=== PATIENT | female | born 1990 | race Caucasian/White ===

== ENCOUNTER 2020-11-19 19:22 | Inpatient (IN) ==
[2020-11-19] MEDS ORDERED: OXYTOCIN 30 UNITS/500 ML BAG IV PRN (20:04)
[2020-11-19] MEDS: LACTATED RINGER'S 1,000 ML IV PRN ×2 (20:15→21:23)
[2020-11-19] MEDS ORDERED: ePHEDrine sulfate 50 MG/ML AMP ONE (20:23)
[2020-11-19] MEDS ORDERED: SODIUM CHLORIDE 0.9% INJ 10 ML VIAL ONE (20:23)
[2020-11-19] MEDS ORDERED: fentaNYL citrate 100 MCG/2 ML VIAL ONE (20:23)
[2020-11-19] MEDS ORDERED: BUPIVACAINE 0.25% 30 ML VIAL ONE (20:23)
[2020-11-19] MEDS ORDERED: fentaNYL 2MCG/ML ROPIVACAINE 1.25MG/ML 100 ML BAG EPI ONE (20:24)
--- NOTE | 2020-11-19 20:27 | History & Physical Report ---
Date of Service November 19, 2020 Assessment & Plan (1) Normal labor: IUP at 40+ weeks presents with SPROM , thin meconium and active labor history of shunt placement X 2 for hydrocephalus cleared by neurology for vaginal delivery morbid obesity with BMI of 57. requesting epidural analgesia anticipate vaginal . History of Present Illness Primary Care Provider: NO PCP Patient is a 30 yo female who presents at 40+ weeks with SPROM at 1800 tonight. contractions started shortly afterward. GBS negative. complicated by morbid obesity (BMI-57) and a history of surgery for correction of hydrocephalus X 2 as well as sleep apnea. Her neurologic status is stable since 2017 and may proceed with a vaginal . Blood type is O negative. 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, 2007 Family History Mother Insomnia Father Obstructive sleep apnea Social History Smoking Status: Never smoker Hx Alcohol Use: No Hx Substance Use: No Preferred Language: Belarusian Communication Ability: Effective 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 Beliefs That Will Affect Care: None marital status: marital status details: Av White (36) [phone] Current Living Situation: Spouse Current Living Situation Comment: house with current occupational status: employed 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 Other Information That Helps Us Care for You: No Feels Safe at Home: Yes Safety Concerns: Feels Safe At This Time Assistive Devices: None Review of Systems All systems reviewed & are unremarkable except as noted in HPI & below Physical Exam Constitutional: WD/WN, vitals as above Respiratory: normal respiratory effort, lungs clear to auscultation Cardiovascular: RRR, no murmur, no edema Gastrointestinal (Abdomen): normal bowel sounds, soft, nontender, no hepatosplenomegaly Percussion/Palpation: abdomen soft Psychiatric: A+Ox3, euthymic affect Genitourinary: Manual OB Exam: + cervical dilation 4 cm, + cervical effacement 100%, + station -1 and + amniotic fluid meconium (thin) OB Exam Monitor Tracing: + external FHT monitor used, + category I and + normal FHT variability Results & Data ([facility]) Vital Signs (Past 12 Hours) Vital Signs Temp Pulse Resp BP 11/19/20 19:48 98.6 F 20 11/19/20 19:43 92 H 158/72 H Coding Level of Care Code None Diagnoses Normal labor O80; Z37.9
[2020-11-19 20:34] LABS: Hematocrit (blood only) 36.1 % (37-47); Hemoglobin 12.2 g/dL (12.0-16.0); Mean Corpuscular Hemoglobin 26.9 pg (25-34); Mean Corpuscular Hgb Conc 33.8 g/dL (32-36); Mean Corpuscular Volume 79.5 fL (80-100); Platelet Count 303 K/uL (130-400); RDW Coefficient of Variation 16.7 % (11.5-14.5); RDW Standard Deviation 48.1 fL (36.4-46.3); Red Blood Count 4.54 M/uL (4.2-5.4); White Blood Count 12.02 K/uL (4.8-10.8)
--- NOTE | 2020-11-19 20:50 | Anesthesiology Consultation ---
Date of Service November 19, 2020 Assessment & Plan (1) Encounter for pre-operative examination: Chart Review Chart Review: Acceptable Risk for Labor Epidural Consults Requested none ASA ASA3 Proposed Anesthesia Anesthesia Type: Labor Epidural Risk / Benefits Reviewed With: PT / POA / Parent / Guardian, Accepts Plan and Informed Consent Obtained History Height/Weight Height: 5 ft 7 in Weight: 165.108 kg Allergies Allergy/AdvReac Type Severity Reaction Status Date / Time No Known Allergies Allergy Verified 11/19/20 19:46 Medications Home Medications Medication Instructions Recorded Confirmed Last Taken prenat.vits,marlo,rba-yhir-[id number] 1 tab PO DAILY 03/29/20 11/19/20 11/19/20 ferrous sulfate 1 tab PO DAILY 08/23/20 11/15/20 11/19/20 Active Medications Generic Name Dose Route Start Last Admin Trade Name Freq PRN Reason Stop Dose Admin Lactated Ringer's 1,000 mls @ 125 mls/hr 11/19/20 20:04 11/19/20 20:15 Lr IV 11/21/20 20:03 999 mls/hr .Q8H PRN Administration L&D Protocol Protocol Past Medical History Medical History History of chicken pox Exercise / Class Metabolic Activity II 4-5 Yardwork/Stairs/Walk up hill Past Family History Family History Mother Insomnia Father Obstructive sleep apnea Past Surgical History Surgical History History of appendectomy 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, 2007 Past Anesthesia History No Hx of Anesthesia Complications and No Family Hx of Anesthesia Complications History of PONV No Hx of PONV and No Hx of Motion Sickness Social History Smoking Status: Never smoker Hx Alcohol Use: No Hx Substance Use: No Physical Exam Vital Signs Last Vital Signs Temp 98.6 F 11/19/20 19:48 Pulse 100 H 11/19/20 20:45 Resp 20 11/19/20 19:48 BP 132/85 11/19/20 20:45 Pulse Ox 100 11/19/20 20:45 ENMT Mouth: no dentition abnormality Thyromental Distance: > or= 3.5 Finger Breadths Mallampati Class: III Neck normal visual inspection Respiratory normal respiratory effort Auscultation: lungs clear to auscultation bilaterally Cardiovascular Rate/Rhythm: regular rate and regular rhythm Testing Laboratory Results 11/19/20 20:22
[2020-11-19] MEDS ORDERED: ONDANSETRON INJ 2 MG/ML 2 ML VIAL IV PRN (21:16)
[2020-11-19] MEDS ORDERED: fentaNYL 2MCG/ML ROPIVACAINE 1.25MG/ML 100 ML BAG EPI PRN (21:16)
[2020-11-19] MEDS ORDERED: NALOXONE HCL 1 MG in SODIUM CHLORIDE 0.9% 1000ML 1,000 ML IV PRN (21:16)
[2020-11-19] MEDS ORDERED: ePHEDrine sulfate 50 MG/ML AMP IV PRN (21:16)
[2020-11-19] MEDS ORDERED: NALOXONE HCL 0.4 MG/1 ML VIAL/CARP IV PRN (21:16)
[2020-11-19] MEDS ORDERED: diphenhydrAMINE 50 MG/ML VIAL IV PRN (21:16)
[2020-11-19] MEDS ORDERED: NURSING L&D Epidural Breakthrough Pain Update ONE (23:14)
[2020-11-20] MEDS ORDERED: DIPHTHERIA/TETANUS/PERTUSSIS 0.5 ML SYR/VIAL IM ONE (00:50)
[2020-11-20] MEDS ORDERED: oxyCODONE/ACETAMINOPHEN 5mg/325mg TAB PO PRN (00:50)
[2020-11-20] MEDS ORDERED: HYDROCORTISONE ACETATE 25 MG SUPP PR PRN (00:50)
[2020-11-20] MEDS ORDERED: bisacodyL 10 MG SUPP PR PRN (00:50)
[2020-11-20] MEDS ORDERED: SUPERCREAM 0.870% 15 GM JAR EXT PRN (00:50)
[2020-11-20] MEDS ORDERED: ACETAMINOPHEN 325 MG TAB PO PRN (00:50)
[2020-11-20] MEDS ORDERED: OXYTOCIN 30 UNITS/500 ML BAG IV PRN (00:50)
--- NOTE | 2020-11-20 01:11 | Delivery Summary ---
Vaginal Delivery Summary Date of Service November 20, 2020 Patient is a 30-year-old 1 P0 white female who presents at 39-4/7 weeks after rupture of membranes at approximately 1800 hrs. this evening. Spontaneous contractions started shortly after this and she arrived at labor and delivery at 5 cm dilated requesting epidural analgesia. The epidural was effective and she progressed to full dilation and pushed effectively through 3 contractions for delivery of a viable female infant over intact perineum. The placenta was expressed intact with a three-vessel cord after obtaining cord blood sample. A second-degree perineal and vaginal laceration were repaired with 3-0 chromic in the usual fashion. bleeding was controlled with dilute Pitocin. Estimated blood loss was 350 cc. Mother and infant were doing well after delivery. Vaginal Delivery Summary and 2nd [place] [facility] [place] Charge Vaginal Delivery Codes: 84091 global code for the antepartum, delivery, and post- Delivery Type Details: and 2nd Degree [facility]
[2020-11-20] MEDS: BENZOCAINE 20% AER SPR 82.5 GM CAN EXT PRN ×2 (02:22→07:46)
[2020-11-20] MEDS: IBUPROFEN 600 MG TAB PO PRN ×4 (06:33→19:35)
--- NOTE | 2020-11-20 06:57 | Obstetrical Progress Note ---
Date of Service November 20, 2020 Assessment & Plan (1) Encounter for care and examination after delivery: satisfactory exam continue current care plan Subjective Ambulation: ambulating normally Voiding: no voiding problems Passing Gas:: Yes Diet Tolerance:: regular diet Lochia:: Moderate Feeding Type:: breast feeding Physical Exam Constitutional WD/WN, vitals as above Psychiatric A+Ox3, euthymic affect Genitourinary OB Exam Abdomen: + fundal height Fundus: + firm and + relation to umbilicus (at U) Results & Data ([facility]) Vital Signs (Past 12 Hours) Vital Signs Temp Pulse Resp BP Pulse Ox 11/20/20 02:46 94 H 134/67 11/20/20 02:45 98.1 F 18 11/20/20 02:31 90 128/62 11/20/20 02:16 91 H 130/59 L 11/20/20 02:01 89 148/67 H 11/20/20 01:46 92 H 137/61 11/20/20 01:31 100 H 147/65 H 11/20/20 01:16 109 H 132/61 11/20/20 01:01 99 H 148/66 H 11/20/20 00:55 101 H 99 11/20/20 00:50 106 H 100 11/20/20 00:46 104 H 146/88 H 11/20/20 00:45 102 H 100 11/20/20 00:42 96 H 137/68 11/20/20 00:40 98 H 100 11/20/20 00:35 91 H 100 11/20/20 00:30 103 H 100 11/20/20 00:27 104 H 135/62 11/20/20 00:25 107 H 100 11/20/20 00:23 20 11/20/20 00:20 109 H 100 11/20/20 00:15 138 H 100 11/20/20 00:13 122 H 150/68 H 11/20/20 00:10 125 H 100 11/20/20 00:05 114 H 98 11/20/20 00:02 102 H 93 11/20/20 00:00 106 H 18 98 11/19/20 23:58 93 H 124/58 L 11/19/20 23:57 112 H 182/67 H 11/19/20 23:55 103 H 100 11/19/20 23:50 85 100 11/19/20 23:45 91 H 100 11/19/20 23:42 85 199/79 H 11/19/20 23:40 89 100 11/19/20 23:35 93 H 98 11/19/20 23:30 98.1 F 90 18 100 11/19/20 23:26 83 136/66 11/19/20 23:25 93 H 99 11/19/20 23:20 99 H 100 11/19/20 23:15 91 H 99 11/19/20 23:12 91 H 142/74 H 11/19/20 23:10 85 100 11/19/20 23:05 95 H 100 11/19/20 23:00 93 H 18 100 11/19/20 22:57 86 123/56 L 11/19/20 22:55 91 H 100 11/19/20 22:50 93 H 99 11/19/20 22:45 91 H 100 11/19/20 22:42 96 H 131/71 11/19/20 22:40 95 H 100 11/19/20 22:35 89 100 11/19/20 22:30 84 18 98 11/19/20 22:27 86 115/54 L 11/19/20 22:25 84 99 11/19/20 22:20 87 100 11/19/20 22:15 92 H 100 11/19/20 22:12 81 106/57 L 11/19/20 22:10 89 100 11/19/20 22:05 80 100 11/19/20 22:00 80 18 100 11/19/20 21:56 83 129/71 11/19/20 21:55 75 100 11/19/20 21:50 77 100 11/19/20 21:45 85 100 11/19/20 21:42 86 135/76 11/19/20 21:40 80 100 11/19/20 21:35 80 100 11/19/20 21:30 80 100 11/19/20 21:26 77 123/60 11/19/20 21:25 98.1 F 85 18 99 11/19/20 21:24 75 127/59 L 11/19/20 21:22 78 120/56 L 11/19/20 21:20 82 132/62 100 11/19/20 21:18 82 127/59 L 11/19/20 21:16 78 131/60 11/19/20 21:15 75 100 11/19/20 21:14 82 146/83 H 11/19/20 21:12 86 123/65 11/19/20 21:10 86 141/67 H 100 11/19/20 21:08 86 139/66 11/19/20 21:05 92 H 99 11/19/20 21:00 90 100 11/19/20 20:55 101 H 100 11/19/20 20:50 95 H 100 11/19/20 20:49 100 H 131/75 11/19/20 20:45 100 H 132/85 100 11/19/20 19:48 98.6 F 20 11/19/20 19:43 98.6 F 92 H 20 158/72 H
--- NOTE | 2020-11-20 07:24 | Anesthesia Procedure Note ---
Date of Service November 20, 2020 Anesthesia Post Epidural Note Vital Signs Vital Signs: Temp Pulse Resp BP Pulse Ox 36.7 C 94 H 18 134/67 99 11/20/20 02:45 11/20/20 02:46 11/20/20 02:45 11/20/20 02:46 11/20/20 00:55 Pain Intensity Left Abdomen: Pain Intensity: 6 Notes Mental Status: alert / awake / arousable and participated in evaluation Patient Amnestic to Procedure: Yes Nausea / Vomiting: adequately controlled Pain: adequately controlled Airway Patency, RR, SpO2: stable & adequate BP & HR: stable & adequate Hydration State: stable & adequate Anesthetic Complications: no major complications apparent and Pt Satisfied with anesthetic care
[2020-11-20] MEDS: PRENATAL VITAMIN 1 TAB PO SCH (07:41)
[2020-11-20] MEDS: DOCUSATE SODIUM 100 MG CAP PO SCH ×2 (07:41→21:06)
[2020-11-21] MEDS: IBUPROFEN 600 MG TAB PO PRN ×3 (00:20→08:28)
--- NOTE | 2020-11-21 05:57 | Obstetrical Progress Note ---
Date of Service <Fer Clark MD - Last Filed: 11/21/20 07:27> November 21, 2020 Assessment & Plan <Fer Clark MD - Last Filed: 11/21/20 07:27> (1) state: 30 y/o s/p 0023 11/20/20. 40w5d. 2nd degree perineal and vaginal lac. morbid obesity. O neg. rubella immune - vitals reviewed - meeting PP milestones - pain controlled - w/o issues - s/p rhogam - dispo home today. instructions reviewed by attending Subjective <Fer Clark MD - Last Filed: 11/21/20 07:27> Ambulation: ambulating normally Voiding: no voiding problems Passing Gas:: Yes Diet Tolerance:: regular diet Lochia:: Moderate (improving) Feeding Type:: breast feeding (no issues) Current Pain Level(1-10): 4 (about same as yesterday) ok w/ dispo today Review of Systems Denies fever, chills, sweats Denies shortness of breath, chest pain, palpitations. Denies breast pain. Denies dysuria. Denies headache or changes in vision. Denies nausea/vomiting. Denies numbness, tingling, weakness. no calf pain mood ok Physical Exam <Fer Clark MD - Last Filed: 11/21/20 07:27> General: Alert, oriented. No acute distress. Cardiac: Regular rate and rhythm, no murmurs/rubs/gallops. Respiratory: Clear to auscultation bilaterally, no wheezes/rales/rhonchi. No respiratory distress. Abdomen: , soft, nontender. Uterus: Uterine fundus firm, and palpable at umbilicus or lower per attending exam. Lower Extremities: 1+ ble. No deep calf pain. Yenni's negative bilaterally. Results & Data ([facility]) <Fer Clark MD - Last Filed: 11/21/20 07:27> Vital Signs (Past 12 Hours) Vital Signs Temp Pulse Resp BP Pulse Ox 11/21/20 00:15 36.8 C 84 18 126/76 99 11/20/20 19:55 37.1 C 86 18 139/83 99 Medications Administered <Petty De Anda MD - Last Filed: 11/21/20 07:27> Co-Signing Physician Notes Resident Physician Supervision Note: I interviewed and examined the patient. Discussed with Dr. Clark and agree with findings and plan as documented in the note. Any exceptions or clarifications are listed here: None Documented By: Petty De Anda MD, FACOG
[2020-11-21 06:21] LABS: Hematocrit (blood only) 30.6 % (37-47); Mean Corpuscular Hemoglobin 26.3 pg (25-34); Mean Corpuscular Hgb Conc 32.7 g/dL (32-36); Mean Corpuscular Volume 80.5 fL (80-100); Mean Platelet Volume 8.5 fL (7.4-10.4); Platelet Count 248 K/uL (130-400); RDW Coefficient of Variation 17.2 % (11.5-14.5); RDW Standard Deviation 50.1 fL (36.4-46.3); White Blood Count 9.32 K/uL (4.8-10.8)
[2020-11-21] MEDS: PRENATAL VITAMIN 1 TAB PO SCH (08:28)
[2020-11-21] MEDS: DOCUSATE SODIUM 100 MG CAP PO SCH (08:28)
[2020-11-21] MEDS ORDERED: bisacodyL 5 MG TABEC PO SCH (20:00)
== END 2020-11-21 11:55 | disposition home or self-care (01) | DRG 807 ==
LOC: 4S1 19:22 → OPB 19:22 → 4S1 20:04 → 4S2 11-20 03:00

== ENCOUNTER 2022-07-03 07:43 | Inpatient (IN) ==
[2022-07-03] MEDS ORDERED: LIDOCAINE 1% LOCAL 20 ML VIAL INFIL PRN (07:48)
[2022-07-03] MEDS ORDERED: OXYTOCIN 30 UNITS/500 ML BAG IV PRN ×3 (07:48→21:39)
[2022-07-03] MEDS ORDERED: PENICILLIN G POTASSIUM 6 MU in DEXTROSE 5% 250 ML IV STA (07:48)
[2022-07-03] MEDS: Patient's HEIGHT &/or WEIGHT Needed SCH ×2 (08:35→22:32)
--- NOTE | 2022-07-03 08:49 | History & Physical Report ---
Date of Service July 03, 2022 Assessment & Plan (1) Encounter for induction of labor: (2) GBS (group B Streptococcus carrier), +RV culture, currently : (3) Obesity affecting , antepartum: (4) Polyhydramnios: (5) Need for rhogam due to Rh negative mother: Plan - Patient admitted to labor and delivery for initiation of medical induction of labor - Patient did not receive Malcolm, will plan induce with Pitocin - Oxytocin augmentation of labor will be started per protocol - Patient is GBS+, will require PCN per protocol, no PCN allergy - Patient is Rh -, will plan for Rhogam as indicated - Once contractions are progressing, will consider ROM - Will anticipate epidural as contractions arise - Hgb 10.7/Hct 33, COVID -, type and screening pending Admission and Anticipated Discharge Date Admission Date: July 03, 2022 History of Present Illness Chief Complaint: Induction of Labor Primary Care Provider: WILLIAM Birch Subjective: Myra is a 31 F currently at 39w4d with SHANTEL 07/06/22 determined by LMP who is presenting to L&D for induction. No Malcolm placed. Last cx check in office was 280/-2 on 07/02. Patient notes occasional upper abdominal cramping (bilaterally) but denies any contractions or low back pain. She notes that @ 0400 she noticed a bloody show and loss of mucous plug. She denies any heavy bleeding or clot passage. Patient has a hx of pineal cyst/hydrocephalus s/p craniotomy, she was evaluated by neurology and cleared for vaginal delivery. Complications: Obesity (BMI 51+), CF carrier, Rh Negative Mother, Polyhydramnios Reason for Induction/: Polyhydramnios Movement: Ongoing Fluid Loss/ROM: None Bloody show/discharge: Endorses bloody show @ 0400, endorses loss of mucous plug External FHT and uterine monitor: Category 1, baseline 145-150, moderate variability, multiple accelerations Last OB appointment: 07/02 (2/80/-2 w/ Nighat), regular care Labs: Blood Type: O- Antibody Screen: Negative Hg/Hct (today): WBC/Plt (today): Rubella: Immune RPR: Non-reactive Gonorrhea: Negative Chlamydia: Negative HIV: Negative HbSAg: Negative GBS: Positive Cff-DNA/SMA: Declined CRIMINAL ANALYST Hx: Prior @ 40 wk EGA (8 lb 13 oz Female) by Dr. Maldonado, Pap 03/04/20 wnl w/ Adilson, No STD Hx Allergies Allergy/AdvReac Type Severity Reaction Status Date / Time No Known Allergies Allergy Verified 07/03/22 08:37 Home Medications Medication Instructions Recorded Confirmed Type prenat.vits,marlo,bbn-[id number]-vlzvn 1 tab PO DAILY 03/29/20 07/03/22 History Patient History Medical History (Updated 07/03/22 @ 09:46 by Shaq Caba DO) Cystic fibrosis carrier History of chicken pox History of pineal cyst Migraines following Neuro- has appointment made Mild obstructive sleep apnea Nocturnal hypoxemia Obesity Surgical History History of appendectomy 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, 2007 S/P wisdom tooth extraction Family History Mother Insomnia Father Obstructive sleep apnea Grandmother (Maternal) Diabetes Denies family history of Ovarian cancer Prostate cancer Breast cancer Lung cancer Hypertension Social History Smoking Status: Never smoker Second Hand Exposure: No; Hx Alcohol Use: No Hx Substance Use: No Preferred Language: Luxembourgish Communication Ability: Effective Visual Impairment: No Limitations Hearing Ability: Normal 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 Beliefs That Will Affect Care: None marital status: marital status details: Harinder White (38) [phone] Current Living Situation: Spouse and Family Current Living Situation Comment: FOB and 1 child - 2 dogs current occupational status: unemployed 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 No visual changes. Physical Exam Physical Exam: General: Alert, oriented. No acute distress. Cardiac: Regular rate and rhythm, no murmurs/rubs/gallops. Respiratory: CTAB, no wheezes/rales/rhonchi. Symmetrical chest rise. No respiratory distress. Abdomen: Abdominal adiposity noted. Gravid abdomen, no TTP; FHTs present; Position: Vertex (per Dr. Disla) Pelvic: TRINY pending Dr. Disla Lower Extremities: 2+ lower extremity edema, varicosities noted. No deep calf pain. Yenni's negative bilaterally. Results & Data ([facility]) Vital Signs (Past 12 Hours) Vital Signs Temp Pulse Resp BP 07/03/22 08:09 36.9 C 99 H 18 128/75 07/03/22 07:59 99 H 128/75 Supervising Physician Co-Signing Physician Notes Resident Physician Supervision Note: I was present with Dr. Caba during the history and exam. I discussed the case with the resident and agree with the findings and plan as documented in the note. Any exceptions or clarifications are listed here: None Documented By: Mohini Dilsa, Resident Activity Tracking Resident Involvement: Resident Care Provided Care Provided: OB Delivery
[2022-07-03 09:01] LABS: Hemoglobin 10.7 g/dl (12.0-16.0); Mean Corpuscular Hemoglobin 25.8 pg (25.0-34.0); Mean Corpuscular Hgb Conc 32.4 g/dL (32.0-36.0); Mean Corpuscular Volume 79.5 fL (80.0-100.0); Mean Platelet Volume 8.9 fL (9.4-12.3); Platelet Count 228 K/uL (130-400); RDW Coefficient of Variation 16.8 % (11.5-14.5); RDW Standard Deviation 47.6 fL (36.4-46.3); Red Blood Count 4.15 M/uL (3.93-5.22); White Blood Count 9.83 K/ul (4.8-10.8)
[2022-07-03] MEDS: LACTATED RINGER'S 1,000 ML IV PRN ×2 (09:19→12:18)
[2022-07-03] MEDS ORDERED: SODIUM CHLORIDE 0.9% 250 ML IV PRN (09:25)
[2022-07-03] MEDS ORDERED: fentaNYL citrate 100 MCG/2 ML VIAL ONE (11:35)
[2022-07-03] MEDS ORDERED: ePHEDrine sulfate 50 MG/ML AMP ONE (11:35)
[2022-07-03] MEDS ORDERED: LIDOCAINE 2%/EPINEPHRINE 1:200,000 20 ML SDV ONE (11:36)
[2022-07-03] MEDS ORDERED: BUPIVACAINE 0.25% 30 ML VIAL ONE (11:36)
[2022-07-03] MEDS ORDERED: fentaNYL 2MCG/ML ROPIVACAINE 1.25MG/ML 100 ML BAG EPI ONE (11:36)
[2022-07-03] MEDS ORDERED: SODIUM CHLORIDE 0.9% INJ 10 ML VIAL ONE (11:36)
[2022-07-03] MEDS ORDERED: Nursing to Pharmacy Communication SCH (12:00)
--- NOTE | 2022-07-03 12:00 | Labor Progress Brief Note ---
Date of Service July 03, 2022 Subjective Does not desire epidural yet. FHT difficult to trace d/t maternal body habitus. PCN 1st dose has been administered for GBS prophylaxis. SVE 2-3/70/-2. AROM blood-tinged fluid. IUPC, FSE applied. FHT Cat 1, [place] Q 2-3 min Limited bedside ultrasound - cephalic presentation Continue labor, pitocin @ 2, continue to increase per protocol. Anticipate . Assessment & Plan Admission and Anticipated Discharge Date Admission Date: July 03, 2022 Results & Data ([facility]) Vital Signs (Past 12 Hours) Vital Signs Temp Pulse Resp BP Pulse Ox 07/03/22 08:09 36.9 C 99 H 18 128/75 07/03/22 11:52 78 99 07/03/22 11:18 73 141/89 H 07/03/22 10:17 77 129/62 07/03/22 09:22 82 139/65 07/03/22 07:59 99 H 128/75 Coding Level of Care Code None
[2022-07-03] MEDS ORDERED: ONDANSETRON INJ 2 MG/ML 2 ML VIAL IV PRN (12:16)
[2022-07-03] MEDS ORDERED: fentaNYL 2MCG/ML ROPIVACAINE 1.25MG/ML 100 ML BAG EPI PRN (12:16)
[2022-07-03] MEDS ORDERED: NALOXONE HCL 0.4 MG/1 ML VIAL/CARP IV PRN (12:16)
[2022-07-03] MEDS ORDERED: NALOXONE HCL 1 MG in SODIUM CHLORIDE 0.9% 1000ML 1,000 ML IV PRN (12:16)
[2022-07-03] MEDS ORDERED: NALBUPHINE HCL INJ 10 MG/ML AMP IV PRN (12:16)
[2022-07-03] MEDS ORDERED: diphenhydrAMINE 50 MG/ML VIAL IV PRN (12:16)
[2022-07-03] MEDS ORDERED: ePHEDrine sulfate 50 MG/ML AMP IV PRN (12:16)
--- NOTE | 2022-07-03 12:18 | Anesthesiology Consultation ---
Date of Service July 03, 2022 Assessment & Plan Chart Review Chart Review: Patient NOT seen in Pre Admission Testing and Acceptable Risk for Labor Epidural Consults Requested none ASA ASA3 Proposed Anesthesia Anesthesia Type: Labor Epidural and CSE Risk / Benefits Reviewed With: PT / POA / Parent / Guardian, Accepts Plan and Informed Consent Obtained History Height/Weight Height: 5 ft 7 in Weight: 158.304 kg Allergies Allergy/AdvReac Type Severity Reaction Status Date / Time No Known Allergies Allergy Verified 07/03/22 08:37 Medications Home Medications Medication Instructions Recorded Confirmed Last Taken prenat.vits,marlo,rhv-ctsi-zwpqi 1 tab PO DAILY 03/29/20 07/03/22 06/30/22 08:00 Active Medications Generic Name Dose Route Start Last Admin Trade Name Freq PRN Reason Stop Dose Admin Lactated Ringer's 1,000 mls @ 125 mls/hr 07/03/22 07:48 07/03/22 12:18 Lr IV 07/05/22 07:47 125 mls/hr .Q8H PRN Administration L&D Protocol Protocol Oxytocin 30 units in 500 mls @ 2 mls/hr 07/03/22 07:53 07/03/22 09:18 Pitocin IV 07/05/22 07:52 0.12 units/hr .Q24H PRN 2 mls/hr Labor Induction/Augmentation Administration Protocol 0.12 UNITS/HR NPO Date Last Intake of Fluids: 07/03/22 Time Last Intake of Fluids: 10:00 Date Last Intake of Solids: 07/03/22 Time Last Intake of Solids: 07:00 Past Medical History Medical History (Updated 07/03/22 @ 09:46 by Shaq Caba DO) Cystic fibrosis carrier History of chicken pox History of pineal cyst Migraines following Neuro- has appointment made Mild obstructive sleep apnea Nocturnal hypoxemia Obesity Exercise / Class Metabolic Activity II 4-5 Yardwork/Stairs/Walk up hill Past Family History Family History Mother Insomnia Father Obstructive sleep apnea Grandmother (Maternal) Diabetes Denies family history of Ovarian cancer Prostate cancer Breast cancer Lung cancer Hypertension Past Surgical History Surgical History History of appendectomy 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, 2007 S/P wisdom tooth extraction Past Anesthesia History No Hx of Anesthesia Complications and No Family Hx of Anesthesia Complications History of PONV No Hx of PONV and No Hx of Motion Sickness Social History Smoking Status: Never smoker Hx Alcohol Use: No Hx Substance Use: No substance use type: does not use Review of Systems no chest pain or sob Physical Exam Vital Signs Last Vital Signs Temp 37.1 C 07/03/22 11:30 Pulse 86 07/03/22 12:12 Resp 18 07/03/22 08:09 BP 141/89 H 07/03/22 11:18 Pulse Ox 100 07/03/22 12:12 Constitutional + morbidly obese ENMT Mouth: no TMJ abnormality Thyromental Distance: > or= 3.5 Finger Breadths Mallampati Class: II Neck normal visual inspection Respiratory normal respiratory effort Auscultation: lungs clear to auscultation bilaterally Cardiovascular Rate/Rhythm: regular rate and regular rhythm Musculoskeletal Spine: normal cervical ROM Neurologic moves all extremities Psychiatric Orientation: alert and oriented x 3 Testing Laboratory Results 07/03/22 08:22 Blood Type O Negative 07/03/22 08:22 Antibody Screen NEGATIVE 07/03/22 08:22
[2022-07-03] MEDS: PENICILLIN G POTASSIUM 3 MU in DEXTROSE 5% 100 ML IV PRN ×2 (13:14→17:13)
[2022-07-03] MEDS: ACETAMINOPHEN 325 MG TAB PO PRN ×2 (14:21→18:06)
--- NOTE | 2022-07-03 14:39 | Labor Progress Brief Note ---
Date of Service July 03, 2022 Subjective Comfortable with epidural. FSE not reading properly. FSE/IUPC replaced. SVE 4/80/-2, head feels more applied than previous exam. FHT Cat 1 with [place] Q 2 after replacement. Continue labor. Assessment & Plan Admission and Anticipated Discharge Date Admission Date: July 03, 2022 Results & Data ([facility]) Vital Signs (Past 12 Hours) Vital Signs Temp Pulse Resp BP Pulse Ox 07/03/22 13:45 36.9 C 20 07/03/22 12:45 18 07/03/22 08:09 36.9 C 99 H 18 128/75 07/03/22 14:32 85 100 07/03/22 14:27 83 100 07/03/22 14:22 79 98 07/03/22 14:17 69 99 07/03/22 14:16 73 113/60 07/03/22 14:12 70 99 07/03/22 14:11 78 114/60 07/03/22 14:07 88 100 07/03/22 14:06 80 113/59 L 07/03/22 14:02 100 07/03/22 14:02 80 07/03/22 14:02 73 115/64 07/03/22 13:57 98 07/03/22 13:57 81 07/03/22 13:57 82 122/68 07/03/22 13:52 75 100 07/03/22 13:51 78 118/63 07/03/22 13:47 72 100 07/03/22 13:46 85 106/59 L 07/03/22 13:42 80 100 07/03/22 13:41 70 105/53 L 07/03/22 13:37 66 100 07/03/22 13:36 84 107/57 L 07/03/22 13:32 72 100 07/03/22 13:31 71 115/61 07/03/22 13:27 72 120/67 98 07/03/22 13:22 76 98 07/03/22 13:21 63 120/62 07/03/22 13:17 80 113/57 L 99 07/03/22 13:16 73 109/59 L 07/03/22 13:12 80 100 07/03/22 13:11 64 111/56 L 07/03/22 13:07 100 07/03/22 13:07 79 07/03/22 13:07 75 112/59 L 07/03/22 13:05 85 90 07/03/22 13:02 68 100 07/03/22 13:01 67 123/59 L 07/03/22 12:59 18 07/03/22 12:59 36.7 C 18 07/03/22 12:57 71 99 07/03/22 12:56 73 107/64 07/03/22 12:52 82 99 07/03/22 12:51 76 117/61 07/03/22 12:47 80 100 07/03/22 12:45 80 113/59 L 07/03/22 12:43 77 136/66 07/03/22 12:42 83 100 07/03/22 12:37 100 07/03/22 12:37 87 07/03/22 12:37 76 134/61 07/03/22 12:32 86 100 07/03/22 12:27 92 H 100 07/03/22 12:22 101 H 99 07/03/22 12:17 77 100 07/03/22 12:18 80 147/73 H 07/03/22 12:12 86 100 07/03/22 12:07 73 100 07/03/22 11:30 37.1 C 07/03/22 12:02 82 99 07/03/22 11:57 76 100 07/03/22 11:52 78 99 07/03/22 11:18 73 141/89 H 07/03/22 10:17 77 129/62 07/03/22 09:22 82 139/65 07/03/22 07:59 99 H 128/75 Coding Level of Care Code None
--- NOTE | 2022-07-03 21:26 | Delivery Summary ---
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 Apgars: 8/9. Weight pending, please see nursery records. Estimated blood loss: 300ml Description of delivery: The patient progressed to complete with epidural anesthesia. She then began to push. She spontaneously vaginally delivered a viable from the cephalic presentation. No nuchal. The head delivered in TIKA position. The anterior shoulder delivered, followed by the posterior shoulder, followed by the body. The baby was placed on mother's abdomen and a spontaneous cry was heard. Delayed cord clamping was employed, and the cord was doubly clamped and cut. Cord blood was obtained. The placenta was delivered spontaneously intact with a 3-vessel cord. The uterus and vagina were swept of clots and debris. IV pitocin was given. The uterus became firm. The cervix, vagina, and perineum were inspected and a 2nd degree perineal laceration was noted and repaired with 3-0 vicryl in standard fashion, as well as a [id number] stitch of 3-0 vicryl to a right periurethral laceration. After repair, catheter was passed through urethra to check that stitch was far from urethra. Excellent hemostasis was observed. The mother and baby are recovering in stable and good condition in the room. Sponge, needle and instrument counts were correct x 2. DO HORTENSIA GuadarramaG
[2022-07-03] MEDS ORDERED: IBUPROFEN 600 MG TAB PO ONE (21:28)
[2022-07-03] MEDS ORDERED: HYDROCORTISONE ACETATE 25 MG SUPP PR PRN (21:39)
[2022-07-03] MEDS ORDERED: bisacodyL 10 MG SUPP PR PRN (21:39)
[2022-07-03] MEDS ORDERED: oxyCODONE/ACETAMINOPHEN 5mg/325mg TAB PO PRN (21:39)
[2022-07-03] MEDS ORDERED: BENZOCAINE 20% AER SPR 82.5 GM CAN EXT PRN (21:39)
[2022-07-03] MEDS ORDERED: DIPHTHERIA/TETANUS/PERTUSSIS 0.5 ML SYR/VIAL IM ONE (21:39)
--- NOTE | 2022-07-03 22:57 | Anesthesia Procedure Note ---
Date of Service July 03, 2022 Anesthesia Post Epidural Note Vital Signs Vital Signs: Temp Pulse Resp BP Pulse Ox O2 Del Method 36.9 C 80 18 117/59 L 93 07/03/22 20:40 07/03/22 22:51 07/03/22 22:10 07/03/22 22:51 07/03/22 20:13 07/03/22 19:04 Pain Intensity Head: Pain Intensity: 3 Notes Mental Status: alert / awake / arousable and participated in evaluation Nausea / Vomiting: adequately controlled Pain: adequately controlled Airway Patency, RR, SpO2: stable & adequate BP & HR: stable & adequate Hydration State: stable & adequate Neuraxial Anesthesia: was administered and sensory block is resolving Anesthetic Complications: no major complications apparent and Pt Satisfied with anesthetic care Epidural: Removed without complications and With tip intact
[2022-07-04] MEDS: ACETAMINOPHEN 325 MG TAB PO PRN ×2 (00:24→12:15)
[2022-07-04] MEDS: IBUPROFEN 600 MG TAB PO PRN ×4 (01:44→19:39)
--- NOTE | 2022-07-04 05:45 | Obstetrical Progress Note ---
Date of Service July 04, 2022 Assessment & Plan (1) care following vaginal delivery: (2) Need for rhogam due to Rh negative mother: (3) Polyhydramnios: (4) GBS (group B Streptococcus carrier), +RV culture, currently : (5) Obesity affecting , antepartum: Plan - Overall, feeling well and eating well today - Infant feeding going well without concern - Urinating appropriately, has not yet passed gas, bowel sounds present - Ambulating well - Pain controlled w/ Ibuprofen and Tylenol - Hgb 07/03 10.7, Hgb 07/04 9.3 - Routine PP care progressing well - Anticipate discharge tomorrow - Recommending f/u outpatient in 6 weeks Admission and Anticipated Discharge Date Admission Date: July 03, 2022 Supervising Physician Co-Signing Physician Notes Resident Physician Supervision Note: I was present with Dr. Caba during the history and exam. I discussed the case with the resident and agree with the findings and plan as documented in the note. Any exceptions or clarifications are listed here: PPD#1 doing well. Routine care. Documented By: Mohini Disla, DO Subjective Today 07/04: Patient is a 31 y/o female who is PPD #1 following delivery at 39w4d. Patient was GBS + and received PCN during delivery. was complicated by obesity and polyhydraminos. - Ambulation - well throughout room - Voiding/Malcolm - independent voids, no dysuria or pressure - Gas/Stool - not yet passing gas, no bowel movement, feels gas moving in abdomen - Diet - regular, no nausea or emesis - Lochia - diminishing, moderate amount - Feeding Type - formula feeding - Pain Level - 5/10, controlled with Ibuprofen and Tylenol Review of Systems - Denies fever, chills, sweats - Denies shortness of breath, difficulty breathing, chest pain, palpitations, chest pressure. - Denies breast pain. - Denies dysuria. - Denies headache or changes in vision. - Endorses LBP/Tailbone pain, improved when out of bed Physical Exam Physical Exam: General: Alert, oriented. No acute distress. Cardiac: RRR, normal S1/S2, no murmurs/rubs/gallops. Respiratory: Non-labored, CTAB, no wheezes/rales/rhonchi. Symmetric chest rise. Abdomen: Soft, nontender, nondistended. Abdominal adiposity present. Bowel sounds present. Uterus: Uterine fundus firm, palpable 3 cm below umbilicus. No TTP. Lower Extremities: No lower extremity edema or swelling. No deep calf pain. Yenni's negative bilaterally. Results & Data ([facility]) Vital Signs (Past 12 Hours) Vital Signs Temp Pulse Pulse Resp BP BP Pulse Ox 07/04/22 03:20 36.9 C 77 18 117/70 98 07/03/22 23:15 37.1 C 88 20 129/73 97 07/03/22 22:45 18 07/03/22 22:10 18 07/03/22 21:40 18 07/03/22 21:10 78 18 119/59 L 07/03/22 20:55 18 07/03/22 21:25 18 07/03/22 20:40 36.9 C 18 07/03/22 19:04 36.9 C 18 07/03/22 19:04 07/03/22 22:51 80 117/59 L 07/03/22 22:36 74 126/59 L 07/03/22 22:21 86 127/57 L 07/03/22 22:06 79 109/55 L 07/03/22 21:51 75 112/56 L 07/03/22 21:36 78 121/58 L 07/03/22 21:21 79 121/63 07/03/22 21:06 78 119/59 L 07/03/22 20:00 20 07/03/22 20:00 20 07/03/22 20:51 83 121/53 L 07/03/22 20:36 83 125/58 L 07/03/22 20:22 121/66 07/03/22 20:12 103 H 96 07/03/22 20:13 111 H 93 07/03/22 20:07 99 07/03/22 20:07 96 H 07/03/22 20:07 93 H 136/60 07/03/22 20:02 96 H 100 07/03/22 20:03 97 H 86 L 07/03/22 19:57 87 100 07/03/22 19:52 71 99 07/03/22 19:53 71 109/55 L 07/03/22 19:47 73 98 07/03/22 19:42 75 99 07/03/22 19:37 99 07/03/22 19:37 73 07/03/22 19:37 75 110/53 L 07/03/22 19:30 18 07/03/22 19:30 18 07/03/22 19:32 75 98 07/03/22 19:27 84 98 07/03/22 19:22 79 109/57 L 98 07/03/22 19:17 80 99 07/03/22 19:12 86 100 07/03/22 19:10 85 90 07/03/22 19:07 76 100 07/03/22 19:08 74 116/58 L 07/03/22 19:00 18 07/03/22 19:00 36.9 C 18 07/03/22 19:02 81 100 07/03/22 18:57 79 100 07/03/22 18:52 72 98 07/03/22 18:51 67 120/57 L 07/03/22 18:47 73 97 07/03/22 18:42 72 99 07/03/22 18:37 83 100 07/03/22 18:32 82 96 07/03/22 18:27 74 98 07/03/22 18:22 77 98 07/03/22 18:17 79 97 07/03/22 18:12 76 98 07/03/22 18:07 82 97 07/03/22 18:06 89 94/52 L 07/03/22 18:02 80 97 07/03/22 17:57 81 99 07/03/22 17:52 82 108/52 L 97 07/03/22 17:47 80 97 O2 Del Method 07/04/22 03:20 Room Air 07/03/22 23:15 Room Air 07/03/22 22:45 07/03/22 22:10 07/03/22 21:40 07/03/22 21:10 07/03/22 20:55 07/03/22 21:25 07/03/22 20:40 07/03/22 19:04 07/03/22 19:04 Room Air 07/03/22 22:51 07/03/22 22:36 07/03/22 22:21 07/03/22 22:06 07/03/22 21:51 07/03/22 21:36 07/03/22 21:21 07/03/22 21:06 07/03/22 20:00 07/03/22 20:00 07/03/22 20:51 07/03/22 20:36 07/03/22 20:22 07/03/22 20:12 07/03/22 20:13 07/03/22 20:07 07/03/22 20:07 07/03/22 20:07 07/03/22 20:02 07/03/22 20:03 07/03/22 19:57 07/03/22 19:52 07/03/22 19:53 07/03/22 19:47 07/03/22 19:42 07/03/22 19:37 07/03/22 19:37 07/03/22 19:37 07/03/22 19:30 07/03/22 19:30 07/03/22 19:32 07/03/22 19:27 07/03/22 19:22 07/03/22 19:17 07/03/22 19:12 07/03/22 19:10 07/03/22 19:07 07/03/22 19:08 07/03/22 19:00 07/03/22 19:00 07/03/22 19:02 07/03/22 18:57 07/03/22 18:52 07/03/22 18:51 07/03/22 18:47 07/03/22 18:42 07/03/22 18:37 07/03/22 18:32 07/03/22 18:27 07/03/22 18:22 07/03/22 18:17 07/03/22 18:12 07/03/22 18:07 07/03/22 18:06 07/03/22 18:02 07/03/22 17:57 07/03/22 17:52 07/03/22 17:47 Resident Activity Tracking Resident Involvement: Resident Care Provided Care Provided: OB Delivery
[2022-07-04 06:45] LABS: Hematocrit (blood only) 28.1 % (34.1-44.9); Hemoglobin 9.3 g/dl (12.0-16.0)
[2022-07-04] MEDS: PRENATAL VITAMIN 1 TAB PO SCH (08:00)
[2022-07-04] MEDS: DOCUSATE SODIUM 100 MG CAP PO SCH ×2 (08:00→21:08)
[2022-07-04] MEDS ORDERED: bisacodyL 5 MG TABEC PO SCH (20:00)
--- NOTE | 2022-07-05 08:07 | Obstetrical Progress Note ---
Date of Service July 05, 2022 Assessment & Plan (1) care following vaginal delivery: 31-year-old day 2 status post vaginal delivery. Doing well. Patient is stable for discharge. Subjective Ambulation: ambulating normally Voiding: no voiding problems Passing Gas:: Yes Diet Tolerance:: regular diet Lochia:: Moderate Feeding Type:: breast feeding Physical Exam Constitutional WD/WN, vitals as above Respiratory normal respiratory effort; no respiratory distress and no labored breathing Gastrointestinal (Abdomen) Inspection/Auscultation: abdomen normal to inspection; abdomen not distended Percussion/Palpation: abdomen soft; abdomen nontender, no guarding and abdomen not rigid Genitourinary OB Exam Abdomen: + fundal height Fundus: + firm and + relation to umbilicus (Below); not tender or not boggy Results & Data ([facility]) Vital Signs (Past 12 Hours) Vital Signs Temp Pulse Resp BP Pulse Ox O2 Del Method 07/05/22 00:30 36.6 C 84 16 127/83 98 Room Air
[2022-07-05] MEDS: IBUPROFEN 600 MG TAB PO PRN (08:16)
[2022-07-05] MEDS: PRENATAL VITAMIN 1 TAB PO SCH (08:17)
[2022-07-05] MEDS: DOCUSATE SODIUM 100 MG CAP PO SCH (08:17)
== END 2022-07-05 12:45 | disposition home or self-care (01) | DRG 807 ==
LOC: 4S1 07:43 → 4E2 23:07

== ENCOUNTER 2023-10-19 07:59 | Inpatient (IN) ==
[2023-10-19] MEDS ORDERED: OXYTOCIN 30 UNITS/NSS 30 UNITS/500 ML BAG IV PRN ×3 (08:10→22:37)
[2023-10-19] MEDS ORDERED: PENICILLIN GK 6 MU in DEXTROSE 5% 250 ML IV STA (08:10)
[2023-10-19] MEDS ORDERED: LIDOCAINE 1% LOCAL 20 ML VIAL INFIL PRN (08:10)
--- NOTE | 2023-10-19 08:10 | History & Physical Report ---
Date of Service October 19, 2023 Assessment & Plan (1) Obesity affecting , antepartum: (2) GBS (group B Streptococcus carrier), +RV culture, currently : Plan Will admit to L&D VSS EFW 98% (09/29/23) Rh Negative; need Rhogam pp GBS negative Epidural prn Malcolm balloon attempted without success in placement Pit as needed All questions answered Admission and Anticipated Discharge Date Admission Date: October 19, 2023 History of Present Illness Chief Complaint: IOL Primary Care Provider: Ez Atwood DO Myra is a 33 y/o female currently at IUP 39 2/7 WGA with an SHANTEL 10/24/23 as determined by certain LMP who comes to L&D today for IOL due to obesity and LGA. (-) contractions (+) movement (-) fluid loss (-) bloody show External FHT and external uterine monitors used * Category 1 tracing * Moderate FHT variability. Had regular appointments since 1st trimester. OB Labs: Blood Type O Negative 03/18/23 Antibody Screen NEGATIVE 08/02/23 Hemoglobin 9.8 g/dl (12.0-16.0) L 09/17/23 Hematocrit 31.3 % (37.0-47.0) L 09/17/23 Mean Corpuscular Volume 78.1 fL (80.0-100.0) L 09/17/23 Platelet Count 201 K/uL (130-400) 09/17/23 Rubella IgG Antibody Immune (Immune) 03/18/23 Rapid Plasma Reagin Nonreactive (Nonreactive) 03/18/23 Hepatitis B Surface Antigen Neg (Neg) 12/05/21 Hepatitis B Surface Antigen. NON-REACTIVE (NON-REACTIVE) 03/18/23 Hepatitis C Antibody Neg (Neg) 12/05/21 Hepatitis C Antibody (EIA) NON-REACTIVE (NON-REACTIVE) 03/18/23 HIV (1&2) Ab and P24 Ag, 4th Gener Neg (Neg) 12/05/21 HIV (1&2) Ag and Ab Confirmation NON-REACTIVE (NON-REACTIVE) 03/18/23 Glucose 1 Hour 50 gm Load 119 mg/dl (70-130) 08/02/23 OB Optional Labs: Chlamydia trachomatis RNA Not Detected (NotDetected) 03/18/23 Neisseria gonorrhoeae RNA Not Detected (NotDetected) 03/18/23 Thyroid Stimulating Hormone (TSH) 2.112 uIu/ml (0.300-4.500) 04/20/22 Labs Reviewed: cf+ sma neg - bia cfdna-low risk--mln Allergies Allergy/AdvReac Type Severity Reaction Status Date / Time No Known Allergies Allergy Verified 10/19/23 08:39 Home Medications Medication Instructions Recorded Confirmed Type prenat.vits,marlo,[id number] 1 tab PO DAILY 03/08/23 10/19/23 History acetaminophen 325 mg capsule 325 mg PO DAILY PRN Headache 03/12/23 10/19/23 History (Tylenol) albuterol sulfate 90 mcg/actuation 2 puff inhalation QID PRN 08/18/23 10/19/23 Rx aerosol inhaler shortness of breath or wheezing #8.5 grams Patient History Medical History care following vaginal delivery Encounter for induction of labor Cystic fibrosis carrier Migraines Polyhydramnios Threatened Encounter for care and examination after delivery Encounter for pre-operative examination Normal labor Encounter for anatomic survey Need for rhogam due to Rh negative mother Supervision of normal first History of chicken pox History of pineal cyst Nocturnal hypoxemia Mild obstructive sleep apnea Obesity Surgical History S/P wisdom tooth extraction History of craniotomy History of appendectomy Family History Mother Insomnia Father Obstructive sleep apnea Grandmother (Maternal) Diabetes Denies family history of Ovarian cancer Prostate cancer Breast cancer Lung cancer Colorectal cancer Hypertension Social History Smoking Status: Never smoker Second Hand Exposure: No; Do You Dip or Chew Tobacco: No; Hx Alcohol Use: No Hx Substance Use: No Preferred Language: Sammarinese Communication Ability: Effective Visual Impairment: No Limitations Hearing Ability: Normal Tree Killer Required: No Beliefs That Will Affect Care: None marital status: marital status details: Harinder White (38) [phone] Current Living Situation: Spouse and Family Current Living Situation Comment: FOB and 2 child - 2 dogs current occupational status: unemployed 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 Date GA wks Lbr Lgth wt Sex Type del Anes Place Del Prov ? Comment 11/20/20 40 8lb 13.[facility] 07/03/22 39 8lb 12.2oz M Ep idural [facility] Dr. Nighat Mcdonnell polyhydramnios MEDICAL DEVICE History Last menstrual period: Yes Menstrual reliability: definite Flow: normal Menstrual regularity: regular Monthly: Yes Age at menarche: 11 On control pills at conception: No Date of positive home test: 02/09/23 Menstrual history comments: cycles q 22-24 days Details: last pap 03/15/[address] De Anda Review of Systems no fever, no chills and no sweats Denies changes in vision. Denies shortness of breath or respiratory difficulty. no chest pain and no palpitations no dysuria no headache(s) Physical Exam Physical Exam: General: Alert, oriented x3. Afebrile. No acute distress. Eyes: Pupils equal and reactive to light bilaterally. Extraocular movement intact bilaterally. Cardiac: Regular rate and rhythm, no murmurs/rubs/gallops. Respiratory: Clear to auscultation bilaterally a/p, no wheezes/rales/rhonchi. No increased work of breathing. Symmetrical chest rise. No respiratory distress. Abdomen: Gravid; Position: Vertex Pelvic: 1.2 / 50 / -2 / poserior Lower Extremities: Bilateral LE swelling. No deep calf pain. Yenni's negative bilaterally Constitutional: WD/WN, vitals as above Psychiatric: A+Ox3, euthymic affect Genitourinary: OB Exam Abdomen: + vertex and + estimated weight (8-9 pounds) OB Exam Monitor Tracing: + external FHT monitor used, + external uterine monitor used, + category I and + normal FHT variability Supervising Physician Co-Signing Physician Notes Resident Physician Supervision Note: I interviewed and examined the patient. Discussed with Dr. Ontiveros and agree with findings and plan as documented in the note. Any exceptions or clarifications are listed here: [None] Documented By: Serene Ayoub MD, FACOG
[2023-10-19 08:44] LABS: Hematocrit (blood only) 33.4 % (37.0-47.0); Hemoglobin 10.8 g/dl (12.0-16.0); Mean Corpuscular Hemoglobin 25.9 pg (25.0-34.0); Mean Corpuscular Hgb Conc 32.3 g/dL (32.0-36.0); Mean Corpuscular Volume 80.1 fL (80.0-100.0); Mean Platelet Volume 8.6 fL (9.4-12.4); Platelet Count 216 K/uL (130-400); RDW Coefficient of Variation 19.4 % (11.5-14.5); RDW Standard Deviation 55.5 fL (36.4-46.3); Red Blood Count 4.17 M/uL (4.20-5.40); White Blood Count 9.37 K/ul (4.8-10.8)
[2023-10-19] MEDS: LACTATED RINGER'S 1,000 ML IV PRN ×4 (09:00→20:33)
[2023-10-19] MEDS ORDERED: PENICILLIN GK 3 MU in DEXTROSE 5% 100 ML IV PRN (11:10)
[2023-10-19] MEDS ORDERED: fentaNYL citrate PF 100 MCG/2 ML VIAL ONE (11:37)
[2023-10-19] MEDS ORDERED: ePHEDrine sulfate 50 MG/ML AMP ONE (11:37)
[2023-10-19] MEDS ORDERED: SODIUM CHLORIDE 0.9% PF INJ 10 ML VIAL ONE (11:38)
[2023-10-19] MEDS ORDERED: LIDOCAINE 2%/EPINEPHRINE 1:200,000 20 ML PF ONE ×2 (11:38→20:08)
[2023-10-19] MEDS ORDERED: fentANYL 2 MCG/ML BUPIVacaine 0.125%-NSS 100ML BAG ONE (11:38)
[2023-10-19] MEDS ORDERED: BUPIVACAINE 0.25% PF 30 ML VIAL ONE (11:38)
[2023-10-19] MEDS ORDERED: fentaNYL citrate PF 100 MCG/2 ML VIAL EPI STA (11:41)
[2023-10-19] MEDS ORDERED: LIDOCAINE 2% MPF LOCAL 5 ML VIAL EPI PRN (11:41)
[2023-10-19] MEDS ORDERED: ePHEDrine sulfate 50 MG/ML AMP IV PRN (11:41)
[2023-10-19] MEDS ORDERED: SODIUM CHLORIDE 0.9% PF INJ 10 ML VIAL EPI STA (11:41)
[2023-10-19] MEDS ORDERED: NALOXONE HCL 0.4 MG/1 ML VIAL/CARP IV PRN (11:41)
[2023-10-19] MEDS ORDERED: ONDANSETRON INJ 2 MG/ML 2 ML VIAL IV PRN (11:41)
[2023-10-19] MEDS ORDERED: NALBUPHINE HCL 5 MG in SYRINGE 0 ML IV PRN (11:41)
[2023-10-19] MEDS ORDERED: fentaNYL citrate PF 100 MCG/2 ML VIAL EPI PRN (11:41)
[2023-10-19] MEDS ORDERED: NALOXONE HCL 1 MG in SODIUM CHLORIDE 0.9% 1,000 ML IV PRN (11:41)
[2023-10-19] MEDS ORDERED: BUPIVACAINE 0.25% PF 30 ML VIAL EPI STA (11:41)
[2023-10-19] MEDS ORDERED: SODIUM CHLORIDE 0.9% PF INJ 10 ML VIAL EPI PRN (11:41)
[2023-10-19] MEDS ORDERED: LIDOCAINE 2%/EPINEPHRINE 1:200,000 20 ML PF EPI STA (11:41)
[2023-10-19] MEDS ORDERED: ROPIVACAINE 0.5% PF 5 MG/ML 20 ML VIAL EPI PRN (11:41)
[2023-10-19] MEDS ORDERED: fentANYL 2 MCG/ML BUPIVacaine 0.125%-NSS 100ML BAG EPI PRN (11:41)
[2023-10-19] MEDS ORDERED: diphenhydrAMINE 50 MG/ML VIAL IV PRN (11:41)
--- NOTE | 2023-10-19 11:49 | Anesthesiology Consultation ---
Date of Service October 19, 2023 Assessment & Plan (1) Encounter for pre-operative examination: Chart Review Chart Review: Patient NOT seen in Pre Admission Testing and Acceptable Risk for Labor Epidural Consults Requested none History Height/Weight Height: 5 ft 7 in Weight: 159.665 kg Allergies Allergy/AdvReac Type Severity Reaction Status Date / Time No Known Allergies Allergy Verified 10/19/23 08:39 Medications Home Medications Medication Instructions Recorded Confirmed Last Taken prenat.vits,marlo,[id number] 1 tab PO DAILY 03/08/23 10/19/23 10/18/23 20:00 acetaminophen 325 mg capsule 325 mg PO DAILY PRN Headache 03/12/23 10/19/23 10/19/23 07:00 (Tylenol) albuterol sulfate 90 mcg/actuation 2 puff inhalation QID PRN 08/18/23 10/19/23 Unknown aerosol inhaler shortness of breath or wheezing #8.5 grams Active Medications Generic Name Dose Route Start Last Admin Trade Name Freq PRN Reason Stop Dose Admin Oxytocin 30 units in 500 mls @ 5 mls/hr 10/19/23 08:10 10/19/23 11:45 Pitocin 30 Units/Nss IV 10/21/23 08:09 0.42 units/hr .Q24H PRN 7 mls/hr Labor Induction/Augmentation Titration Protocol 0.3 UNITS/HR Lactated Ringer's 1,000 mls @ 125 mls/hr 10/19/23 08:10 10/19/23 10:34 Lr IV 10/21/23 08:09 125 mls/hr .Q8H PRN Administration L&D Protocol Protocol Past Medical History Medical History (Updated 10/19/23 @ 11:48 by Stevie Toth MD) Encounter for pre-operative examination care following vaginal delivery Encounter for induction of labor Cystic fibrosis carrier Migraines following Neuro- has appointment made Polyhydramnios Threatened Encounter for care and examination after delivery Normal labor Encounter for anatomic survey Need for rhogam due to Rh negative mother Supervision of normal first History of chicken pox History of pineal cyst Nocturnal hypoxemia Mild obstructive sleep apnea Obesity Exercise / Class Metabolic Activity II 4-5 Yardwork/Stairs/Walk up hill Past Family History Family History Mother Insomnia Father Obstructive sleep apnea Grandmother (Maternal) Diabetes Denies family history of Ovarian cancer Prostate cancer Breast cancer Lung cancer Colorectal cancer Hypertension Past Surgical History Surgical History S/P wisdom tooth extraction 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, 2007 History of appendectomy Past Anesthesia History No Hx of Anesthesia Complications and No Family Hx of Anesthesia Complications Social History Smoking Status: Never smoker Do You Dip or Chew Tobacco: No Hx Alcohol Use: No Hx Substance Use: No substance use type: does not use Physical Exam Vital Signs Last Vital Signs Temp 36.8 C 10/19/23 08:45 Pulse 88 10/19/23 12:10 Resp 18 10/19/23 08:45 BP 130/64 10/19/23 11:44 Pulse Ox 100 10/19/23 12:10 Testing Laboratory Results 10/19/23 08:23
[2023-10-19] MEDS: ACETAMINOPHEN 325 MG TAB PO PRN ×2 (14:23→23:28)
[2023-10-19] MEDS ORDERED: NURSING L&D Epidural Breakthrough Pain Update ONE (17:16)
[2023-10-19] MEDS: BUPIVACAINE 0.25% PF 30 ML VIAL EPI PRN ×2 (17:53→20:12)
--- NOTE | 2023-10-19 18:36 | Anesthesia Procedure Note ---
Date of Service October 19, 2023 Anesthesia Epidural Re-Dose Vital Signs Temp Pulse Resp BP Pulse Ox 37.1 C 82 20 134/84 98 10/19/23 17:20 10/19/23 18:35 10/19/23 17:20 10/19/23 18:35 10/19/23 18:31 Notes Pain Intensity: 6 Dilatation (cm): 5.0 Effacement (%): 90 Called by nursing to evaluate epidural as the patient is having increased pain. The epidural was re-dosed with the following medications (all medications via epidural route) after negative aspiration of the epidural catheter for CSF/HEME. 8ml of 0.25% bupivacaine After Epidural Re-Dose Mental Status: alert / awake / arousable and participated in evaluation Pain: improving with treatment Airway Patency, RR, SpO2: stable & adequate BP & HR: stable & adequate
[2023-10-19] MEDS ORDERED: SODIUM CHLORIDE 0.9% 250 ML IV PRN (19:18)
[2023-10-19] MEDS ORDERED: ALBUTEROL HFA 8 GM INHALER INH PRN (20:43)
[2023-10-19] MEDS ORDERED: oxyCODONE/ACETAMINOPHEN 5mg/325mg TAB PO PRN (22:37)
[2023-10-19] MEDS ORDERED: bisacodyL 10 MG SUPP PR PRN (22:37)
[2023-10-19] MEDS ORDERED: DIPHTHER/TETAN/PERTUS Vaccine (Tdap, Adol/Adult) 0.5mL IM ONE (22:37)
[2023-10-19] MEDS ORDERED: HYDROCORTISONE ACETATE 25 MG SUPP PR PRN (22:37)
[2023-10-19] MEDS ORDERED: ACETAMINOPHEN 325 MG TAB PO PRN (22:37)
--- NOTE | 2023-10-19 22:52 | Delivery Summary ---
Vaginal Delivery Summary Date of Service October 19, 2023 Vaginal Delivery Summary and 1st Degree LAC Patient is a 33-year-old 3 para 2-0-0-2 female EDC of 10/24/2023 who presented for induction of labor because of history of macrosomia and obesity. Pitocin induction was begun and she received effective epidural analgesia. Membranes were ruptured for clear fluid. She progressed to full dilation and pushed through 2 contractions for delivery of a viable female . After the head was delivered the right hand was anterior and was delivered next. The rest the delivered without difficulty and was placed on the mother's abdomen for further attention and drying the cord was short and therefore it was cut and clamped shortly after delivery. After the cord was cut the was placed on the mother's abdomen. She was vigorous crying and moving all 4 limbs. The placenta was then expressed intact with a three-vessel cord. Cord blood was obtained prior to delivering the placenta. bleeding was controlled with dilute Pitocin and fundal massage. A first-degree perineal laceration was repaired with 3-0 chromic in usual fashion. EBL was 400 cc. Mother and infant were doing well after delivery. [facility] [place] Vaginal Delivery Charge Delivery Type Details: and 1st Degree LAC
[2023-10-19] MEDS: IBUPROFEN 600 MG TAB PO PRN (23:28)
[2023-10-19] MEDS: BENZOCAINE 20% SPRY 85 APPLN/85 GM CAN EXT PRN (23:28)
[2023-10-20] MEDS: IBUPROFEN 600 MG TAB PO PRN ×4 (04:02→19:34)
[2023-10-20 06:19] LABS: Hematocrit (blood only) 31.9 % (37.0-47.0); Hemoglobin 10.3 g/dl (12.0-16.0); Mean Corpuscular Hemoglobin 25.8 pg (25.0-34.0); Mean Corpuscular Hgb Conc 32.3 g/dL (32.0-36.0); Mean Corpuscular Volume 79.9 fL (80.0-100.0); Mean Platelet Volume 8.5 fL (9.4-12.4); Platelet Count 221 K/uL (130-400); RDW Coefficient of Variation 19.1 % (11.5-14.5); RDW Standard Deviation 55.5 fL (36.4-46.3); Red Blood Count 3.99 M/uL (4.20-5.40); White Blood Count 11.17 K/ul (4.8-10.8)
--- NOTE | 2023-10-20 07:34 | Anesthesia Procedure Note ---
Date of Service October 20, 2023 Anesthesia Post Epidural Note Vital Signs Vital Signs: Temp Pulse Resp BP Pulse Ox O2 Del Method 36.8 C 80 16 105/63 96 Room Air 10/20/23 03:50 10/20/23 03:50 10/20/23 03:50 10/20/23 03:50 10/19/23 22:21 10/20/23 03:50 Pain Intensity Lower Abdomen: Pain Intensity: 3 Head: Pain Intensity: 3 Notes Mental Status: alert / awake / arousable and participated in evaluation Nausea / Vomiting: adequately controlled Pain: adequately controlled Airway Patency, RR, SpO2: stable & adequate BP & HR: stable & adequate Hydration State: stable & adequate Neuraxial Anesthesia: was administered and sensory block is resolving Anesthetic Complications: no major complications apparent Epidural: Removed without complications and With tip intact
[2023-10-20] MEDS: PRENATAL VITAMIN 1 TAB PO SCH (07:45)
[2023-10-20] MEDS: DOCUSATE SODIUM 100 MG CAP PO SCH ×2 (07:45→20:51)
--- NOTE | 2023-10-20 07:54 | Obstetrical Progress Note ---
Date of Service <Svitlana Ontiveros MD - Last Filed: 10/20/23 07:54> October 20, 2023 Assessment & Plan <Svitlana Ontiveros MD - Last Filed: 10/20/23 07:54> (1) Encounter for care after hospital delivery: Patient with the above mentioned history and findings was evaluated at bedside and found awake, alert, oriented in all spheres, afebrile, and in no acute distress. Vital signs showed no fever and blood pressures remained stable. Her blood type is O negative, and baby is O positive. She is to receive Rhogam before discharge. Most recent hemoglobin is adequate at 10.3 g/dL. She is GBS negative and rubella immune. Overall, patient is doing well clinically and meeting the desired milestones. Continue routine pp care. All questions answered. <Serene Ayoub MD, FACOG - Last Filed: 10/20/23 08:01> (1) Encounter for care after hospital delivery: Subjective <Svitlana Ontiveros MD - Last Filed: 10/20/23 07:54> Myra is a 33y/o female who is now PPD # 1 following at 39 2/7 weeks. Reports feeling well overall this morning. Refers mild abdominal cramping & 3/10 pain well managed on analgesics. Voiding spontaneously. Has passed flatus but no bowel movements yet. Tolerating meals overnight and able to ambulate some. Some persistent lochia with some improvement this morning. with some difficulty. Constitutional: no fever, no chills or no sweats Denies shortness of breath or difficulty breathing Cardiovascular: no chest pain or no palpitations Breast: no breast pain Genitourinary (female): no dysuria Neurologic: no headache(s) Denies changes in vision Physical Exam <Svitlana Ontiveros MD - Last Filed: 10/20/23 07:54> General: Alert. Oriented to person, time, and place. Afebrile. No acute distress. Eyes: pupils equal and reactive to light bilaterally, extraocular movements intact. Cardiac: Regular rate and rhythm, no murmurs/rubs/gallops. Respiratory: Clear to auscultation bilaterally a/p, no wheezes/rales/rhonchi. No increased work of breathing. Symmetrical chest rise. No respiratory distress. Abdomen: Soft, nontender, nondistended. Bowel sounds present. Uterus: Uterine fundus firm, nontender, and palpable below umbilicus. Lower Extremities: Bilateral LE swelling. No deep calf pain. Yenni's negative bilaterally. Psych: Euthymic affect. Mood and affect congruence. Regular speech rate and content. Results & Data <Svitlana Ontiveros MD - Last Filed: 10/20/23 07:54> Vital Signs (Past 12 Hours) Vital Signs Temp Pulse Pulse Resp BP BP Pulse Ox 10/20/23 03:50 36.8 C 80 16 105/63 10/20/23 01:05 36.7 C 79 18 117/67 10/20/23 01:05 10/20/23 00:40 84 121/59 L 10/20/23 00:25 86 131/65 10/20/23 00:11 83 102/55 L 10/19/23 23:55 77 10/19/23 23:55 136/63 10/19/23 23:40 82 10/19/23 23:40 118/58 L 10/19/23 23:26 101 H 10/19/23 23:26 148/56 H 10/19/23 23:25 18 10/19/23 23:10 18 10/19/23 22:55 93 H 18 116/55 L 10/19/23 22:55 93 H 10/19/23 22:55 116/55 L 10/19/23 22:40 18 10/19/23 22:40 90 10/19/23 22:40 135/59 L 10/19/23 22:25 18 10/19/23 22:25 95 H 10/19/23 22:25 127/57 L 10/19/23 22:21 96 10/19/23 22:21 91 H 10/19/23 22:18 90 10/19/23 22:18 135/60 10/19/23 22:16 94 10/19/23 22:16 92 H 10/19/23 22:11 96 10/19/23 22:11 88 10/19/23 22:06 99 10/19/23 22:06 101 H 10/19/23 22:04 98 H 10/19/23 22:04 138/64 10/19/23 22:01 96 10/19/23 22:01 93 H 10/19/23 21:56 99 10/19/23 21:56 95 H 10/19/23 21:51 99 10/19/23 21:51 96 H 10/19/23 21:50 18 10/19/23 21:50 18 10/19/23 21:49 113 H 10/19/23 21:49 109/57 L 10/19/23 21:46 94 10/19/23 21:46 87 10/19/23 21:45 37.3 C 10/19/23 21:41 94 10/19/23 21:41 85 10/19/23 21:36 94 10/19/23 21:36 81 10/19/23 21:34 86 10/19/23 21:34 120/56 L 10/19/23 21:31 94 10/19/23 21:31 86 10/19/23 21:30 18 10/19/23 21:30 18 10/19/23 21:30 18 10/19/23 21:30 18 10/19/23 21:26 94 10/19/23 21:26 92 H 10/19/23 21:21 95 10/19/23 21:21 79 10/19/23 21:18 78 10/19/23 21:18 100/51 L 10/19/23 21:16 95 10/19/23 21:16 81 10/19/23 21:11 95 10/19/23 21:11 79 10/19/23 21:06 94 10/19/23 21:06 82 10/19/23 21:03 84 10/19/23 21:03 116/56 L 10/19/23 21:01 95 10/19/23 21:01 74 10/19/23 21:00 18 10/19/23 21:00 18 10/19/23 21:00 18 10/19/23 21:00 18 10/19/23 20:56 96 10/19/23 20:56 79 10/19/23 20:51 96 10/19/23 20:51 82 10/19/23 20:48 84 10/19/23 20:48 120/56 L 10/19/23 20:46 95 10/19/23 20:46 86 10/19/23 20:41 98 10/19/23 20:41 76 10/19/23 20:36 99 10/19/23 20:36 89 10/19/23 20:33 88 10/19/23 20:33 119/58 L 10/19/23 20:31 98 10/19/23 20:31 99 H 10/19/23 20:31 119/55 L 10/19/23 20:30 18 10/19/23 20:30 18 10/19/23 20:29 96 H 10/19/23 20:29 117/55 L 10/19/23 20:27 97 H 10/19/23 20:27 125/60 10/19/23 20:26 92 10/19/23 20:26 103 H 10/19/23 20:25 90 10/19/23 20:25 132/62 10/19/23 20:23 88 10/19/23 20:23 133/64 10/19/23 20:21 97 10/19/23 20:21 91 H 10/19/23 20:21 85 10/19/23 20:21 124/61 10/19/23 20:19 81 10/19/23 20:19 129/57 L 10/19/23 20:17 96 H 10/19/23 20:17 133/70 10/19/23 20:16 82 L 10/19/23 20:16 95 H 10/19/23 20:15 82 10/19/23 20:15 124/64 10/19/23 20:13 80 10/19/23 20:13 134/72 10/19/23 20:12 93 10/19/23 20:12 76 10/19/23 20:11 99 10/19/23 20:11 94 H 10/19/23 20:11 90 10/19/23 20:11 124/76 10/19/23 20:08 85 10/19/23 20:08 120/67 10/19/23 20:06 93 10/19/23 20:06 96 H 10/19/23 20:01 100 10/19/23 20:01 94 H 10/19/23 20:00 20 10/19/23 20:00 20 10/19/23 19:56 98 10/19/23 19:56 75 O2 Del Method 10/20/23 03:50 Room Air 10/20/23 01:05 Room Air 10/20/23 01:05 Room Air 10/20/23 00:40 10/20/23 00:25 10/20/23 00:11 10/19/23 23:55 10/19/23 23:55 10/19/23 23:40 10/19/23 23:40 10/19/23 23:26 10/19/23 23:26 10/19/23 23:25 10/19/23 23:10 10/19/23 22:55 10/19/23 22:55 10/19/23 22:55 10/19/23 22:40 10/19/23 22:40 10/19/23 22:40 10/19/23 22:25 10/19/23 22:25 10/19/23 22:25 10/19/23 22:21 10/19/23 22:21 10/19/23 22:18 10/19/23 22:18 10/19/23 22:16 10/19/23 22:16 10/19/23 22:11 10/19/23 22:11 10/19/23 22:06 10/19/23 22:06 10/19/23 22:04 10/19/23 22:04 10/19/23 22:01 10/19/23 22:01 10/19/23 21:56 10/19/23 21:56 10/19/23 21:51 10/19/23 21:51 10/19/23 21:50 10/19/23 21:50 10/19/23 21:49 10/19/23 21:49 10/19/23 21:46 10/19/23 21:46 10/19/23 21:45 10/19/23 21:41 10/19/23 21:41 10/19/23 21:36 10/19/23 21:36 10/19/23 21:34 10/19/23 21:34 10/19/23 21:31 10/19/23 21:31 10/19/23 21:30 10/19/23 21:30 10/19/23 21:30 10/19/23 21:30 10/19/23 21:26 10/19/23 21:26 10/19/23 21:21 10/19/23 21:21 10/19/23 21:18 10/19/23 21:18 10/19/23 21:16 10/19/23 21:16 10/19/23 21:11 10/19/23 21:11 10/19/23 21:06 10/19/23 21:06 10/19/23 21:03 10/19/23 21:03 10/19/23 21:01 10/19/23 21:01 10/19/23 21:00 10/19/23 21:00 10/19/23 21:00 10/19/23 21:00 10/19/23 20:56 10/19/23 20:56 10/19/23 20:51 10/19/23 20:51 10/19/23 20:48 10/19/23 20:48 10/19/23 20:46 10/19/23 20:46 10/19/23 20:41 10/19/23 20:41 10/19/23 20:36 10/19/23 20:36 10/19/23 20:33 10/19/23 20:33 10/19/23 20:31 10/19/23 20:31 10/19/23 20:31 10/19/23 20:30 10/19/23 20:30 10/19/23 20:29 10/19/23 20:29 10/19/23 20:27 10/19/23 20:27 10/19/23 20:26 10/19/23 20:26 10/19/23 20:25 10/19/23 20:25 10/19/23 20:23 10/19/23 20:23 10/19/23 20:21 10/19/23 20:21 10/19/23 20:21 10/19/23 20:21 10/19/23 20:19 10/19/23 20:19 10/19/23 20:17 10/19/23 20:17 10/19/23 20:16 10/19/23 20:16 10/19/23 20:15 10/19/23 20:15 10/19/23 20:13 10/19/23 20:13 10/19/23 20:12 10/19/23 20:12 10/19/23 20:11 10/19/23 20:11 10/19/23 20:11 10/19/23 20:11 10/19/23 20:08 10/19/23 20:08 10/19/23 20:06 10/19/23 20:06 10/19/23 20:01 10/19/23 20:01 10/19/23 20:00 10/19/23 20:00 10/19/23 19:56 10/19/23 19:56 Supervising Physician <Serene Ayoub MD, FACOG - Last Filed: 10/20/23 08:01> Co-Signing Physician Notes Resident Physician Supervision Note: I interviewed and examined the patient. Discussed with Dr. Ontiveros and agree with findings and plan as documented in the note. Any exceptions or clarifications are listed here: [None] Documented By: Serene Ayoub MD, FACOG
[2023-10-20] MEDS ORDERED: POLYETHYLENE (MIRALAX) 17 GM PACK PO PRN (15:19)
[2023-10-20] MEDS: ACETAMINOPHEN 325 MG TAB PO PRN (15:21)
[2023-10-20] MEDS ORDERED: bisacodyL 5 MG TABEC PO SCH (20:00)
[2023-10-21 06:32] LABS: Hematocrit (blood only) 30.8 % (37.0-47.0)
--- NOTE | 2023-10-21 07:50 | Obstetrical Progress Note ---
Date of Service <Svitlana Ontiveros MD - Last Filed: 10/21/23 07:52> October 21, 2023 Assessment & Plan <Svitlana Ontiveros MD - Last Filed: 10/21/23 07:52> (1) Encounter for care after hospital delivery: Patient with the above mentioned history and findings was evaluated at bedside and found awake, alert, oriented in all spheres, afebrile, and in no acute distress. Vital signs showed no fever and blood pressures remained stable. Her blood type is O negative, and baby is O positive. She is to receive Rhogam before discharge. Most recent hemoglobin is adequate at 10.0 g/dL. She is GBS negative and rubella immune. Overall, patient is doing well clinically and meeting the desired milestones. Will discharge today. She is to call to make an appointment with her OB in 6 weeks for routine pp evaluation. Discharge instructions discussed. All questions answered. <Homer Price MD - Last Filed: 10/21/23 09:07> (1) Encounter for care after hospital delivery: Subjective <Svitlana Ontiveros MD - Last Filed: 10/21/23 07:52> Myra is a 33y/o female who is now PPD # 2 following at 39 2/7 weeks. Reports feeling well overall this morning. Refers mild abdominal cramping & 0/10 pain well managed on analgesics. Voiding spontaneously. Has passed flatus but no bowel movements yet. Tolerating meals overnight and able to ambulate some. Some persistent lochia with some improvement this morning. Bottle feeding. Constitutional: no fever, no chills or no sweats Denies shortness of breath or difficulty breathing Cardiovascular: no chest pain or no palpitations Breast: no breast pain Genitourinary (female): no dysuria Neurologic: no headache(s) Denies changes in vision Physical Exam <Svitlana Ontiveros MD - Last Filed: 10/21/23 07:52> General: Alert. Oriented to person, time, and place. Afebrile. No acute distress. Eyes: pupils equal and reactive to light bilaterally, extraocular movements intact. Cardiac: Regular rate and rhythm, no murmurs/rubs/gallops. Respiratory: Clear to auscultation bilaterally a/p, no wheezes/rales/rhonchi. No increased work of breathing. Symmetrical chest rise. No respiratory distress. Abdomen: Soft, nontender, nondistended. Bowel sounds present. Uterus: Uterine fundus firm, nontender, and palpable below umbilicus. Lower Extremities: Bilateral LE swelling relatively unchanged compared to yesterday. No deep calf pain. Yenni's negative bilaterally. Psych: Euthymic affect. Mood and affect congruence. Regular speech rate and content. Results & Data <Svitlana Ontiveros MD - Last Filed: 10/21/23 07:52> Vital Signs (Past 12 Hours) Vital Signs Temp Pulse Resp BP Pulse Ox O2 Del Method 10/20/23 23:23 36.7 C 80 18 120/74 99 Room Air Supervising Physician <Homer Price MD - Last Filed: 10/21/23 09:07> Co-Signing Physician Notes Patient seen with resident and agree with the above findings and plan. Stable for discharge
[2023-10-21] MEDS: PRENATAL VITAMIN 1 TAB PO SCH (08:02)
[2023-10-21] MEDS: IBUPROFEN 600 MG TAB PO PRN (08:02)
[2023-10-21] MEDS: DOCUSATE SODIUM 100 MG CAP PO SCH (08:02)
[2023-10-21] MEDS: BENZOCAINE 20% SPRY 85 APPLN/85 GM CAN EXT PRN (10:47)
== END 2023-10-21 11:30 | disposition home or self-care (01) | DRG 807 ==
LOC: 4S1 07:59 → 4E2 10-20 00:45

== ENCOUNTER 2025-06-25 07:30 | Inpatient (IN) ==
--- NOTE | 2025-05-10 15:19 | PAT Medication Instructions ---
Medication Instructions Date of Service May 10, 2025 Home Medications prenat.vits,marlo,[id number] 1 tab PO HS acetaminophen 325 mg capsule (Tylenol) 325 mg PO UD PRN Headache aspirin 81 mg tablet,delayed release 81 mg PO HS calcium carbonate (Tums) 200 mg PO UD PRN Acid Reflux ASK your prescriber and surgeon aspirin 81 mg tablet,delayed release 81 mg PO HS DO NOT take the morning of surgery calcium carbonate (Tums) 200 mg PO UD PRN Acid Reflux Take morning of surgery With a small sip of water, OTHERWISE NOTHING TO EAT OR DRINK AFTER MIDNIGHT: acetaminophen 325 mg capsule (Tylenol) 325 mg PO UD PRN Headache (if needed) Take evening before surgery prenat.vits,marlo,nam-[id number] 1 tab PO HS acetaminophen 325 mg capsule (Tylenol) 325 mg PO UD PRN Headache (if needed) calcium carbonate (Tums) 200 mg PO UD PRN Acid Reflux (if needed) Other Notes If you have any questions please call us at [phone] or [phone] or [phone] or [phone]
--- NOTE | 2025-05-17 11:30 | Anesthesiology Consultation ---
Date of Service May 17, 2025 Assessment & Plan (1) Encounter for pre-operative examination: Infectious disease screening: Per assessment on 05/10/25- No known recent infectious disease contacts or current infectious disease symptoms. Chart Review Chart Review: Acceptable Risk for Surgery and Patient seen in Pre Admission Testing History Surgery Operation Date: 06/25/25 09:00 Proposed Procedures p Section (Delivery of Baby Through Abdominal Incision) - Farzaneh Powers MD, FACOG Height/Weight Height: 5 ft 7 in Weight: 174.6 kg Allergies Allergy/AdvReac Type Severity Reaction Status Date / Time No Known Allergies Allergy Verified 05/17/25 10:45 Medications Home Medications Medication Instructions Recorded Confirmed Last Taken prenat.vits,marlo,uet-duql-yroxe 1 tab PO HS 03/08/23 05/17/25 10/18/23 20:00 acetaminophen 325 mg capsule 325 mg PO UD PRN Headache 03/12/23 05/17/25 10/19/23 07:00 (Tylenol) aspirin 81 mg tablet,delayed 81 mg PO HS 05/10/25 05/17/25 Unknown release calcium carbonate (Tums) 200 mg PO UD PRN Acid Reflux 05/10/25 05/17/25 Unknown Past Medical History Medical History Anemia Receiving iron infusions, next due 05/17/25 Cystic fibrosis carrier Migraines Follows with Neuro- has appointment made Mild obstructive sleep apnea Hx device in 2019, used x 1 years, device recalled and never went back for new device Obesity Pineal gland cyst s/p craniotomy x2 (2007), remaining pineal cyst under surveillance, stable, no surgical intervention at this time per patient Twin gestation in third trimester Exercise / Class Metabolic Activity III < 4 Walking/Shop/Light housework Past Family History Family History Mother Insomnia Father Obstructive sleep apnea Grandmother (Maternal) Diabetes Denies family history of Ovarian cancer Prostate cancer Breast cancer Lung cancer Colorectal cancer Hypertension Past Surgical History Surgical History History of appendectomy History of craniotomy x2- r/t pineal cyst (2007) No current issues since S/P wisdom tooth extraction Past Anesthesia History No Hx of Anesthesia Complications and No Family Hx of Anesthesia Complications History of PONV No Hx of PONV and No Hx of Motion Sickness Social History Smoking Status: Never smoker Do You Dip or Chew Tobacco: No Hx Alcohol Use: No Hx Substance Use: No substance use type: does not use Review of Systems Patient denies chest pain, shortness of breath, fever, chills, cough, wheezing. Physical Exam Vital Signs BP 112/70 P 86 TEMP 98.0 SP02 97%RA RESP 16 Physical Full cervical extension range of motion. Full TMJ range of motion. TMD 3 finger breaths Mallampati Score III Dentition: intact Lungs: clear throughout to auscultation Cardiac: regular rate and rhythm, no murmurs noted Spine: normal Extremities: no LE edema Lab Results Anesthesia Preop Results Results Anesthesia Widget: WBC 8.40 K/ul (4.8-10.8) 05/16/25 Hgb 10.7 g/dl (12.0-16.0) L 05/16/25 Hct 31.8 % (37.0-47.0) L 05/16/25 Plt 200 K/uL (130-400) 05/16/25 Na 136 mmol/L (136-145) 05/16/25 K 3.8 mmol/L (3.5-5.1) 05/16/25 Cl 105 mmol/L (98-107) 05/16/25 CO2 24 mmol/L (21-32) 05/16/25 BUN 9 mg/dl (6-23) 05/16/25 Creat 0.59 mg/dl (0.6-1.2) L 05/16/25 Glucose Level 99 mg/dl (70-99(Fasting)) 05/16/25 Urine Color Yellow 04/17/25 Urine Appearance Turbid (Clear) A 04/17/25 Urine pH 6.5 (4.5-7.5) 04/17/25 Urine Specific [place] 1.022 (1.000-1.030) 04/17/25 Urine Protein Negative (Negative) 04/17/25 Urine Glucose (UA) Negative (Negative) 04/17/25 Urine Ketones Trace (Negative) H 04/17/25 Urine Blood Negative (Negative) 04/17/25 Urine Nitrite Negative (Negative) 04/17/25 Urine Bilirubin Negative (Negative) 04/17/25 Urine Urobilinogen Negative (Negative) 04/17/25 Urine Leukocyte Esterase 2+ (Negative) H 04/17/25 Urine WBC (Auto) 11-20 /hpf (0-5) H 04/17/25 Urine RBC (Auto) 0-2 /hpf (0-2) 04/17/25 Urine Hyaline Casts (Auto) 0-2 /lpf (0-2) 04/17/25 Urine Epithelial Cells (Auto) 11-20 /hpf (0-2) H 04/17/25 Urine Bacteria (Auto) 2+ (None Seen) H 04/17/25 Antibody Screen NEGATIVE 04/17/25 Testing Laboratory Results Urine culture (04/17/25): three types of organisms present, all high counts, probable skin anurag Surgeon preop orders not received at time of PAT visit (after multiple attempts)- l/m with OB office to make them aware/advised if anything further needed from their perspective, they would need to obtain/coordinate. OB office workload note 05/17/25, "Testing was not needed" Other Testing Brain MRI Date: 04/25/25 IMPRESSION: 1. No acute intracranial findings. No hydrocephalus. 2. No significant change in size of a 1.9 x 1.8 cm pineal cyst since MRI of March 25, 2022.
[2025-06-25] MEDS ORDERED: OXYTOCIN 30 UNITS/NSS 30 UNITS/500 ML BAG IV PRN (07:49)
[2025-06-25] MEDS ORDERED: LIDOCAINE 1% LOCAL 20 ML VIAL INFIL PRN (07:49)
--- NOTE | 2025-06-25 07:56 | History & Physical Report ---
Date of Service June 25, 2025 Assessment & Plan (1) Group B streptococcal infection during : (2) Dichorionic diamniotic twin : (3) Elderly multigravida: (4) Obesity affecting , antepartum: Plan Patient presents for iol of di/di twins in v/v presentation. Patient has a hx of x 3 for 8-9# babies at term. complicated by morbid obesity--381#. Patient is an excellent candidate for vaginal delivery but her morbid obesity makes her a significant risk for morbidity if there is a need for emergent c/s during labor or after delivery of baby A. this might include inability to intubate resulting in morbidity. Also discussed that given her body habitus, if would need to do emergent delivery, would take me some time to get to the baby/ies because of her body habitus. WE have had long conversations over the course of the last month that the safest and less morbid surgical delivery is primary c/s now prior to labor. We have also gone into detail about the risks of surgery for her. Patient understands this and understands that she is at significant morbidity for urgent surgery. Conversations had with anesthesia as well, who is understandably concerned, but on board with plan. Will treat with pcn for gbs positive. c/s consent form reviewed and signed. Patient would like tubal sterilization if c/s done. Plan arom now and fse on baby a. Start pitocin low and slow. Move to or for vaginal delivery. Will have back up ob for delivery. Anticipate x 2. Admission and Anticipated Discharge Date Admission Date: June 25, 2025 History of Present Illness Chief Complaint: iol, twins Primary Care Provider: Ez Atwood, Patient is a with iup at 38 1/7 weeks who presents for iol for di/di twins. has been fairly straight foward. The babies have been concordant. Last us 06/14/25 A AC and EFW >98%, 8#14oz. left B AC 81, efw 69, 6#14 oz, right 22% discordance but first time it has been like this. \Patient notes good movement with both babies. no lof/vb. Patient with a hx of three vaginal deliveries all 8+ and last was 9#5oz and Delivery Plans Di/Di Twins *Baby ASA daily start 12-28wks until delivery *Anatomy scan @20wks - 02/19/25 @ [facility] *Serial growth US/S starting @24wks *Wkly NST's @32wks, twice wkly @36wks(nml growth) *Twice wkly NST's @32wks, ICSI or abnml growth *MD visits Q2wks @24wks & Qwk @32wks *DI/DI Deliver @38wks Hx Pineal cyst, hydrocephalus with shunting, migraines, s/p brain sx x 2 Anemia-currently receiving Iron infusion through [facility] AMA Weekly NST's @ 36 weeks Obesity (BMI 40 and higher @ beginning of ) *Growth US @ 32wks *Weekly NSTs @ 34wks *BMI 40 or above offer delivery by EDC. *BMI 50 or greater scheduled detailed/level II anatomy at [facility] (02/19/25 @ [facility] [place]) Need for rhogam d/t Rh negative mother - Rhogam given 04/17/25- MK Patient CF carrier, Patient and FOB declined FOB testing Hepatitis B-not immune GBS Positive *Treat in Labor OB Labs: Blood Type O Negative 11/30/24 Antibody Screen NEGATIVE 04/17/25 Hgb 10.7 g/dl (12.0-16.0) L 05/16/25 Hct 31.8 % (37.0-47.0) L 05/16/25 MCV 86.4 fL (80.0-100.0) 05/16/25 Plt Count 200 K/uL (130-400) 05/16/25 Rubella IgG Antibody Immune (Immune) 11/30/24 RPR Nonreactive (Nonreactive) 03/18/23 Treponema pallidum Ab Negative (Negative) 04/17/25 Hep Bs Antigen Negative (Negative) 11/30/24 Hep Bs Antigen NON-REACTIVE (NON-REACTIVE) 03/18/23 Hepatitis C Antibody Negative (Negative) 11/30/24 Hepatitis C Ab (EIA) NON-REACTIVE (NON-REACTIVE) 03/18/23 HIV 1&2 Ab/P24 Ag 4thGn Negative (Negative) 11/30/24 HIV (1&2) Ag & Ab Conf NON-REACTIVE (NON-REACTIVE) 03/18/23 Glucose 1 Hr 50 gm 132 mg/dl (70-130) H 01/23/25 OB Optional Labs: Chlamydia trachomatis RNA Not Detected (NotDetected) 11/30/24 Neisseria gonorrhoeae RNA Not Detected (NotDetected) 11/30/24 Thyroid Stimulating Hormone (TSH) 2.112 uIu/ml (0.300-4.500) 04/20/22 Labs Reviewed: cf+ sma neg - bia cfdna-low risk--mln gbs neg Allergies Allergy/AdvReac Type Severity Reaction Status Date / Time No Known Allergies Allergy Verified 06/22/25 10:32 Home Medications Medication Instructions Recorded Confirmed Type prenat.vits,marlo,xyz-fazo-mmjak 1 tab PO HS 03/08/23 06/22/25 History acetaminophen 325 mg capsule See Rx Instructions .Route 03/12/23 06/22/25 History (Tylenol) .COMPLEX PRN Headache aspirin 81 mg tablet,delayed 81 mg PO HS 05/10/25 06/22/25 History release calcium carbonate (Tums) 200 mg PO UD PRN Acid Reflux 05/10/25 06/22/25 History Patient History Medical History Pineal gland cyst s/p craniotomy x2 (2007), remaining pineal cyst under surveillance, stable, no surgical intervention at this time per patient Anemia Receiving iron infusions, next due 05/17/25 Twin gestation in third trimester Cystic fibrosis carrier Migraines Follows with Neuro- has appointment made Mild obstructive sleep apnea Hx device in 2019, used x 1 years, device recalled and never went back for new device Obesity Surgical History S/P wisdom tooth extraction History of craniotomy x2- r/t pineal cyst (2007) No current issues since History of appendectomy Family History Mother Insomnia Father Obstructive sleep apnea Grandmother (Maternal) Diabetes Denies family history of Ovarian cancer Prostate cancer Breast cancer Lung cancer Colorectal cancer Hypertension Social History Smoking Status: Never smoker Second Hand Exposure: No; Do You Dip or Chew Tobacco: No; Hx Alcohol Use: No Hx Substance Use: No Preferred Language: Senegalese Communication Ability: Effective Visual Impairment: No Limitations Hearing Ability: Normal Global Marketing Coordinator Required: No Beliefs That Will Affect Care: None marital status: marital status details: Harinder White [phone] Current Living Situation: Spouse and Family Current Living Situation Comment: lives with spouse, children, dog current occupational status: unemployed 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 Date GA wks Lbr Lgth wt Sex Type del Anes Place Del Prov ? Comment 11/20/20 40 8lb 13.6oz F Ep idural [facility] Dr. Erica Chand 07/03/22 39 8lb 12.2oz M Ep idural [facility] Dr. Nighat Mcdonnell polyhydramnios 10/19/23 39 9lb 4.9oz F Epi dural [facility] Erica N L[employer]IST History noncontributory Physical Exam Constitutional: WD/WN, vitals as above Gastrointestinal (Abdomen): soft, obese, large panus Psychiatric: A+Ox3, euthymic affect Genitourinary: cx-- toco--abhishek efm--babyA/black/left--140s with mod variability, accels to 150s, no decels baby B/blue/right--140s with mod variability, accels to 160s, no decels ultrasound--presenting baby cephalic and on left, baby B cephalic on left. Coding Level of Care Code None Diagnoses Group B streptococcal infection during O98.819; B95.1 Dichorionic diamniotic twin O30.049 Elderly multigravida O09.529 Obesity affecting , antepartum O99.210
[2025-06-25] MEDS ORDERED: SODIUM CHLORIDE 0.9% 100 ML IV PRN (08:22)
[2025-06-25 08:32] LABS: Hematocrit (blood only) 34.9 % (37.0-47.0); Hemoglobin 11.6 g/dl (12.0-16.0); Mean Corpuscular Hemoglobin 28.5 pg (25.0-34.0); Mean Corpuscular Volume 85.7 fL (80.0-100.0); Platelet Count 212 K/uL (130-400); RDW Standard Deviation 50.0 fL (36.4-46.3); Red Blood Count 4.07 M/uL (4.20-5.40); White Blood Count 10.01 K/ul (4.8-10.8)
[2025-06-25] MEDS: PENICILLIN GK 6 MU in DEXTROSE 5% 250 ML IV STA (08:45)
[2025-06-25] MEDS: LACTATED RINGER'S 1,000 ML IV PRN (08:46)
[2025-06-25] MEDS ORDERED: LIDOCAINE 2% MPF LOCAL 5 ML VIAL EPI PRN (09:19)
[2025-06-25] MEDS ORDERED: NALOXONE HCL 0.4 MG/1 ML VIAL/CARP IV PRN (09:19)
[2025-06-25] MEDS ORDERED: NALOXONE HCL 1 MG in SODIUM CHLORIDE 0.9% 1,000 ML IV PRN (09:19)
[2025-06-25] MEDS ORDERED: diphenhydrAMINE 50 MG/ML VIAL IV PRN (09:19)
[2025-06-25] MEDS ORDERED: SODIUM CHLORIDE 0.9% PF INJ 10 ML VIAL EPI PRN (09:19)
[2025-06-25] MEDS ORDERED: ROPIVACAINE 0.5% PF 5 MG/ML 20 ML VIAL EPI PRN (09:19)
[2025-06-25] MEDS ORDERED: NALBUPHINE HCL INJ 10 MG/ML AMP IV PRN (09:19)
[2025-06-25] MEDS ORDERED: ONDANSETRON INJ 2 MG/ML 2 ML VIAL IV PRN ×2 (09:19→16:46)
[2025-06-25] MEDS ORDERED: BUPIVACAINE 0.25% PF 30 ML VIAL EPI PRN (09:19)
[2025-06-25] MEDS ORDERED: fentANYL 2 MCG/ML BUPIVacaine 0.125%-NSS 100ML BAG EPI PRN (09:19)
--- NOTE | 2025-06-25 09:19 | Anesthesiology Consultation ---
Date of Service June 25, 2025 Assessment & Plan ASA ASA3 Proposed Anesthesia Anesthesia Type: Labor Epidural Risk / Benefits Reviewed With: PT / POA / Parent / Guardian, Accepts Plan and Informed Consent Obtained Additional Comments: pt has been advised several times of the risk of a stat csection in a atient who is and high bmi. I asked if she wanted a more detailed explanation, but she declined. I felt it was best to respect her autonomy instead of lecturing her again. She is aware of the risks and wishes to proceed. History Surgery Operation Date: 06/25/25 09:00 Proposed Procedures p Section - Farzaneh Powers MD, FACOG Height/Weight Height: 5 ft 7 in Weight: 172.819 kg Allergies Allergy/AdvReac Type Severity Reaction Status Date / Time No Known Allergies Allergy Verified 06/22/25 10:32 Medications Home Medications Medication Instructions Recorded Confirmed Last Taken prenat.vits,marlo,mvp-apwn-euqix 1 tab PO HS 03/08/23 06/22/25 06/10/25 acetaminophen 325 mg capsule See Rx Instructions .Route 03/12/23 06/22/25 06/10/25 (Tylenol) .COMPLEX PRN Headache aspirin 81 mg tablet,delayed 81 mg PO HS 05/10/25 06/22/25 06/10/25 release calcium carbonate (Tums) 200 mg PO UD PRN Acid Reflux 05/10/25 06/22/25 06/10/25 Active Medications Generic Name Dose Route Start Last Admin Trade Name Freq PRN Reason Stop Dose Admin Lactated Ringer's 1,000 mls @ 125 mls/hr 06/25/25 07:49 06/25/25 09:10 Lr IV 06/27/25 07:48 999 mls/hr .Q8H PRN Infusion L&D Protocol Protocol Past Medical History Medical History Pineal gland cyst s/p craniotomy x2 (2007), remaining pineal cyst under surveillance, stable, no surgical intervention at this time per patient Anemia Receiving iron infusions, next due 05/17/25 Twin gestation in third trimester Cystic fibrosis carrier Migraines Follows with Neuro- has appointment made Mild obstructive sleep apnea Hx device in 2019, used x 1 years, device recalled and never went back for new device Obesity Exercise / Class Metabolic Activity II 4-5 Yardwork/Stairs/Walk up hill Past Family History Family History Mother Insomnia Father Obstructive sleep apnea Grandmother (Maternal) Diabetes Denies family history of Ovarian cancer Prostate cancer Breast cancer Lung cancer Colorectal cancer Hypertension Past Surgical History Surgical History S/P wisdom tooth extraction History of craniotomy x2- r/t pineal cyst (2007) No current issues since History of appendectomy Past Anesthesia History No Hx of Anesthesia Complications and No Family Hx of Anesthesia Complications History of PONV No Hx of PONV and No Hx of Motion Sickness Social History Smoking Status: Never smoker Do You Dip or Chew Tobacco: No Hx Alcohol Use: No Hx Substance Use: No substance use type: does not use Review of Systems denies fever/cough/ colds/ chest pain/ SOB/ YAZMIN denies YAZMIN Physical Exam Vital Signs Last Vital Signs Temp 36.9 C 06/25/25 07:56 Pulse 79 06/25/25 09:59 Resp 18 06/25/25 07:56 BP 121/57 L 06/25/25 09:57 Pulse Ox 99 06/25/25 09:59 ENMT Mouth: no TMJ abnormality and no dentition abnormality Thyromental Distance: > or= 3.5 Finger Breadths Mallampati Class: II Neck neck extension not limited Respiratory normal respiratory effort; no respiratory distress Auscultation: lungs clear to auscultation bilaterally Cardiovascular Rate/Rhythm: regular rate and regular rhythm Neurologic moves all extremities Psychiatric Orientation: alert and oriented x 3 Testing Laboratory Results 06/25/25 08:02 Blood Type O Negative 06/25/25 08:22 Antibody Screen NEGATIVE 06/25/25 08:22 Other Testing Brain MRI Date: 04/25/25 IMPRESSION: 1. No acute intracranial findings. No hydrocephalus. 2. No significant change in size of a 1.9 x 1.8 cm pineal cyst since MRI of March 25, 2022.
[2025-06-25] MEDS: fentANYL 2 MCG/ML BUPIVacaine 0.125%-NSS 100ML BAG ONE (09:58)
[2025-06-25] MEDS: LIDOCAINE 2%/EPINEPHRINE 1:200,000 20 ML PF ONE (10:00)
[2025-06-25] MEDS: BUPIVACAINE 0.25% PF 30 ML VIAL ONE (10:00)
--- NOTE | 2025-06-25 10:12 | Labor Progress Brief Note ---
Date of Service June 25, 2025 Subjective Now comfortable with epidural Assessment & Plan (1) Dichorionic diamniotic twin : Plan first dose of pcn on board, arom a, start pitocin, category one strip x 2. Admission and Anticipated Discharge Date Admission Date: June 25, 2025 Physical Exam Physical Exam: cx--580/-2, arom a, clear toco--abhishek efm--fse now on A--150s b--130s Results & Data Vital Signs (Past 12 Hours) Vital Signs Temp Pulse Resp BP Pulse Ox 06/25/25 10:09 93 H 112/59 L 99 06/25/25 10:07 89 111/58 L 06/25/25 10:05 101 H 121/57 L 06/25/25 10:04 89 96 06/25/25 10:02 81 108/58 L 06/25/25 09:59 79 99 06/25/25 09:57 102 H 121/57 L 06/25/25 09:55 111 H 127/56 L 06/25/25 09:54 95 H 99 06/25/25 09:50 101 H 145/85 H 06/25/25 09:49 96 H 100 06/25/25 09:47 102 H 135/79 06/25/25 09:44 81 99 06/25/25 07:57 103 H 119/68 06/25/25 07:56 36.9 C 18 Coding Level of Care Code None Diagnoses Dichorionic diamniotic twin O30.049
[2025-06-25] MEDS: OXYTOCIN 30 UNITS/NSS 30 UNITS/500 ML BAG IV PRN ×2 (10:35→15:45)
[2025-06-25] MEDS: BUPIVACAINE 0.25% PF 30 ML VIAL EPI STA (10:43)
[2025-06-25] MEDS: SODIUM CHLORIDE 0.9% PF INJ 10 ML VIAL ONE (10:43)
[2025-06-25] MEDS: SODIUM CHLORIDE 0.9% PF INJ 10 ML VIAL EPI STA (10:44)
[2025-06-25] MEDS: LIDOCAINE 2%/EPINEPHRINE 1:200,000 20 ML PF EPI STA (10:44)
[2025-06-25] MEDS: PENICILLIN GK 3 MU in DEXTROSE 5% 100 ML IV PRN (12:51)
--- NOTE | 2025-06-25 13:02 | Labor Progress Brief Note ---
Date of Service June 25, 2025 Subjective comfortable Assessment & Plan (1) Dichorionic diamniotic twin : Plan pit at 5. iupc in, able to trace both babies, category x 2. continue pitocin. schawrtz in place. Admission and Anticipated Discharge Date Admission Date: June 25, 2025 Physical Exam Physical Exam: cx--/-2 toco--difficult to greens picker , definitely having some, iupc placed toco--a--140s with mod variability, +accels, no decels b--140s with mod variability, accels present, no decels. Results & Data Vital Signs (Past 12 Hours) Vital Signs Temp Pulse Resp BP Pulse Ox 06/25/25 12:59 81 100 06/25/25 12:54 83 100 06/25/25 12:52 97 H 115/64 06/25/25 12:49 84 96 06/25/25 12:44 83 97 06/25/25 12:39 80 96 06/25/25 12:37 83 100/50 L 06/25/25 12:34 77 96 06/25/25 12:29 82 96 06/25/25 12:24 80 95 06/25/25 12:22 83 108/56 L 06/25/25 12:19 82 94 06/25/25 12:18 83 94 06/25/25 12:14 75 95 06/25/25 12:11 90 94 06/25/25 12:09 81 97 06/25/25 12:07 86 109/52 L 06/25/25 12:04 92 H 96 06/25/25 12:01 20 06/25/25 12:01 20 06/25/25 11:59 88 99 06/25/25 11:54 76 99 06/25/25 11:50 81 100/54 L 06/25/25 11:49 88 98 06/25/25 11:48 85 106/55 L 06/25/25 11:46 85 98/53 L 06/25/25 11:44 80 06/25/25 11:44 78 98/49 L 98 06/25/25 11:42 92 H 100/55 L 06/25/25 11:40 87 105/56 L 06/25/25 11:39 78 98 06/25/25 11:38 86 101/55 L 06/25/25 11:36 95 H 101/53 L 06/25/25 11:34 90 99/52 L 98 06/25/25 11:32 80 101/56 L 06/25/25 11:30 96 H 20 106/55 L 06/25/25 11:29 82 99 06/25/25 11:28 88 118/62 06/25/25 11:26 100 H 113/57 L 06/25/25 11:24 96 H 114/55 L 95 06/25/25 11:22 103 H 116/55 L 06/25/25 11:21 90 115/58 L 06/25/25 11:19 82 105/55 L 97 06/25/25 11:17 95 H 86/52 L 06/25/25 11:16 97 H 92 06/25/25 11:14 94 H 06/25/25 11:14 70 92/52 L 97 06/25/25 11:12 86 96/53 L 06/25/25 11:10 113 H 96/49 L 06/25/25 11:09 88 97 06/25/25 11:08 85 102/52 L 06/25/25 11:06 83 92/50 L 06/25/25 11:04 94 06/25/25 11:04 82 06/25/25 11:04 78 107/56 L 06/25/25 11:02 96 H 95/50 L 06/25/25 11:00 36.7 C 102 H 18 94/52 L 06/25/25 10:59 90 97 06/25/25 10:58 90 95/54 L 06/25/25 10:57 96 H 103/50 L 06/25/25 10:54 80 120/59 L 97 06/25/25 10:53 85 123/57 L 06/25/25 10:50 86 97/52 L 06/25/25 10:49 57 L 98 06/25/25 10:48 89 84/48 L 06/25/25 10:45 18 06/25/25 10:44 75 99 06/25/25 10:43 96 H 06/25/25 10:43 98 H 90/55 L 93 06/25/25 10:39 82 99 06/25/25 10:37 81 101/52 L 06/25/25 10:35 86 100/57 L 06/25/25 10:34 85 97 06/25/25 10:32 97 H 112/57 L 06/25/25 10:31 95 H 93 06/25/25 10:30 20 06/25/25 10:29 83 100 06/25/25 10:25 85 110/57 L 06/25/25 10:24 78 100 06/25/25 10:23 90 105/63 06/25/25 10:21 46 L 106/56 L 06/25/25 10:19 90 115/58 L 100 06/25/25 10:17 100 H 125/61 06/25/25 10:15 18 06/25/25 10:15 105 H 127/60 06/25/25 10:14 88 100 06/25/25 10:13 98 H 126/67 06/25/25 10:11 97 H 135/88 06/25/25 10:09 93 H 112/59 L 99 06/25/25 10:07 89 111/58 L 06/25/25 10:05 101 H 121/57 L 06/25/25 10:04 89 96 06/25/25 10:02 81 108/58 L 06/25/25 10:00 18 06/25/25 09:59 79 99 06/25/25 09:57 102 H 121/57 L 06/25/25 09:55 111 H 127/56 L 06/25/25 09:54 95 H 99 06/25/25 09:50 101 H 145/85 H 06/25/25 09:49 96 H 100 06/25/25 09:47 102 H 135/79 06/25/25 09:44 81 99 06/25/25 07:57 103 H 119/68 06/25/25 07:56 36.9 C 18 Coding Level of Care Code None Diagnoses Dichorionic diamniotic twin O30.049
[2025-06-25] MEDS ORDERED: HYDROCORTISONE ACETATE 25 MG SUPP PR PRN (16:07)
--- NOTE | 2025-06-25 16:11 | Communication Note ---
Date of Service: June 25, 2025 Anesthesia monitors delivery of twins in the OR. Close to or shortly after delivery of Baby A, the patient started having frequent PVCs on our monitor. There were several runs of bi/trigeminy. Pressure was stable and pt did not report any chest pain. several monitor strips were taken but bi/trigeminy was not captured. I notified the OB attending. I am concerned that there are many cardiovascular changes right after delivery including a significant increase in CO. I did not give lidocaine because the patient had an epidural in place. It was decided that the patient will go to telemetry, have a medicine consult, and have ob monitoring on the tele floor
--- NOTE | 2025-06-25 16:12 | Anesthesia Procedure Note ---
Date of Service June 25, 2025 Anesthesia Post Epidural Note Vital Signs Vital Signs: Temp Pulse Resp BP Pulse Ox 36.7 C 110 H 20 129/62 100 06/25/25 11:00 06/25/25 15:19 06/25/25 14:00 06/25/25 14:51 06/25/25 15:19 Notes Mental Status: alert / awake / arousable and participated in evaluation Nausea / Vomiting: adequately controlled Pain: adequately controlled Airway Patency, RR, SpO2: stable & adequate BP & HR: stable & adequate (frequent PVC) Hydration State: stable & adequate Neuraxial Anesthesia: was administered and sensory block is resolving Anesthetic Complications: no major complications apparent and Pt Satisfied with anesthetic care Epidural: Removed without complications and With tip intact
--- NOTE | 2025-06-25 16:15 | Delivery Summary ---
Vaginal Delivery Summary Date of Service June 25, 2025 Vaginal Delivery Summary (x2) Pre-operative Diagnosis: tuip at 38 1/7 gbs positive morbid obesity Post-operative Diagnosis: same Procedure: epidural arom fse and iupc pitocin iol x 2 second degree laceration and repair EBL: 300cc Anesthesia: epidural Procedure: The patient presented to labor and delivery for iol for di/di twins. She was admitted, epidural administered, PCN for GBS given, arom for clear of baby A and fse placed on baby A. The patient then progressed to c/c/+2. She was transferred to the OR and the team assembled--nursing, looseleaf binder coverer, anesthesia. The patient pushed for one contraction to deliver a viable female infant in marco position. The rest of the infant was then delivered without difficulty. The baby was vigorous. The nose and mouth were bulb suctioned and the infant was given to peds nursing for drying and attention. Cord was clamped and cut at at about 30 secs of life. Cord blood obtained. Dr. Disla who was assisting, guided the head into the pelvis. Milk Truck Driver placed hand into the uterus and head guided into the pelvis. The membranes were then ruptured with the operators fingers for clear fluid and FSE placed. fht in the 120s. With contractions the baby descended to +2 and then with maternal pushing over about two contractions the patient delivered the second baby in marco. The shoulders delivered easily. The baby was vigorous. The nose and mouth were bulb suctioned. The cord was clamped and cut at about 30 secs of life and handed to awaiting peds nursing. Apgars of A 8/9, Apgars of B 8/9. The Placentas delivered spontaneous, intact with a three vessel cord x 2. Placenta of A marked with one clip, B with two clips. Cervix/sulci/rectum were intact. A second degree perineal laceration was repaired in the normal standard fashion. Hemostasis obtained with dilute pitocin and fundal massage, im methergine and 8000mcg of cytotec. Mother and baby doing well at the end of the delivery. Just after delivery of baby A, pvcs were noted on the maternal strip. She denies any sx. Will consult hospitalist for evaluation and management. [facility] Vaginal Delivery Charge Delivery Type Details: (x2)
[2025-06-25] MEDS: OXYTOCIN 30 UNITS/500ML NSS IV ONE (16:23)
[2025-06-25] MEDS: METHYLERGONOVINE MALEATE 0.2 MG/ML AMP IM ONE (16:28)
[2025-06-25] MEDS: DIPHTHER/TETAN/PERTUS Vaccine (Tdap, Adol/Adult) 0.5mL IM ONE (16:30)
--- NOTE | 2025-06-25 16:47 | Hospitalist Consultation ---
Date of Consultation June 25, 2025 Assessment & Plan (1) PVC (premature ventricular contraction): 34 yo otherwise healthy female, incidentally found to have PVCs on monitor while in the process of delivery. HD ogden patient is stable and status itself is potential risk factor of PVCs. Patient does not endorse symptoms of heart failure, she never had h/o heart disease in past. However given frequent PVCs it's reasonable to monitor her over PCU telemetry. Patient needs rate control only in case of hemodynamic instability, which is very rare with PVCs. Talked to charge nurse- they will assign her single room feasible for family and twin, given post- status. Hospitalist service will continue to follow regular and monitor in telemetry. (2) Vaginal delivery: Supervising Physician Co-Signing Physician Notes I personally examined the patient and verified all rubio points of history and exam, discussed case, and agree with decision making with Dr Hernández Feeling okay overall except for some nausea and vomiting. No chest pains/shortness of breath/palpitations. Vitals noted, in general she is awake and alert pleasant no distress. Later in the visit she does begin actively vomiting, no respiratory distress. Breathing unlabored no accessory muscle use good effort. Occasional ectopy on monitor noted. Neuro without focal deficits. Labs and diagnostics noted. Frequent ectopyasymptomatic. Monitor. No intervention needed at this time. No appearance of impact on cardiac output in a meaningful way. Nausea/vomitingas needed Zofran, supportive care, follow. Otherwise as above. History of Present Illness Attending Physician: Farzaneh Powers MD, FACOG History of Present Illness 34 YO, female, elderly multipara with h/o obesity, delivered DCDA twin this afternoon. Delivery was conducted under monitor inside OR. After delivery of 1st twin, patient noted to have frequent PVCs in monitor, however patient not symptomatic. Blood pressure was on lower side few time but has peaked up now. Patient endorses h/o feeling some flutters during few times but did not last long. No chest pain, SOB, fever, anxiety episodes. No unusual blood loss during delivery. No h/o heart disease in past. Anesthesiology consulted primary team and hence patient was seen on OB floor. Allergies Allergy/AdvReac Type Severity Reaction Status Date / Time No Known Allergies Allergy Verified 06/22/25 10:32 Home Medications Medication Instructions Recorded Confirmed Type prenat.vits,marlo,ecn-jtpy-pajte 1 tab PO HS 03/08/23 06/22/25 History acetaminophen 325 mg capsule See Rx Instructions .Route 03/12/23 06/22/25 History (Tylenol) .COMPLEX PRN Headache aspirin 81 mg tablet,delayed 81 mg PO HS 05/10/25 06/22/25 History release calcium carbonate (Tums) 200 mg PO UD PRN Acid Reflux 05/10/25 06/22/25 History Patient History Medical History Pineal gland cyst s/p craniotomy x2 (2007), remaining pineal cyst under surveillance, stable, no surgical intervention at this time per patient Anemia Receiving iron infusions, next due 05/17/25 Twin gestation in third trimester Cystic fibrosis carrier Migraines Follows with Neuro- has appointment made Mild obstructive sleep apnea Hx device in 2019, used x 1 years, device recalled and never went back for new device Obesity Surgical History S/P wisdom tooth extraction History of craniotomy x2- r/t pineal cyst (2007) No current issues since History of appendectomy Family History Mother Insomnia Father Obstructive sleep apnea Grandmother (Maternal) Diabetes Denies family history of Ovarian cancer Prostate cancer Breast cancer Lung cancer Colorectal cancer Hypertension Social History Smoking Status: Never smoker Second Hand Exposure: No; Do You Dip or Chew Tobacco: No; Hx Alcohol Use: No Hx Substance Use: No Preferred Language: Comoran Communication Ability: Effective Visual Impairment: No Limitations Hearing Ability: Normal Ivory Carver Required: No Beliefs That Will Affect Care: None marital status: marital status details: Harinder White (41) [phone] Current Living Situation: Spouse and Family Current Living Situation Comment: lives with spouse, children, dog current occupational status: unemployed 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 How many Children do You have: 3 Feels Safe at Home: Yes Safety Concerns: Feels Safe At This Time Childhood Exposure to Second-Hand Smoke: Yes Diet: regular caffeine: Yes during the past year weight has: remained stable Dental Care, Regularly: Yes Physical Activity Frequency: Does not Exercise Seatbelt Use: always Sunscreen Use: Yes Assistive Devices: None Review of Systems Review of Systems: Per HPI Physical Exam Physical Exam: Constitutional: Well appearing, No acute distress HEENT: Atraumatic, Normocephalic, No conjunctival injection CVS: S1 S2 no murmur, frequent extra heart beats noted on exam and monitor, Mild leg edema+ Respiratory: BL equal air entry with NVBS. No rhonchi, wheezes, or crackles. No increased work of breathing GI: Soft, Distended belly, uterus palpated between umbilicus and pubic bone, well contracted Nontender MSK: No gross deformities noted Skin: Warm, Dry, No rashes Neuro: Alert, Oriented to TPP, No Focal deficit Psych: Mood and Affect congruent, Cooperative on exam Results & Data Results & Data Vital Signs (Past 12 Hours) Vital Signs Temp Pulse Resp BP Pulse Ox 06/25/25 16:39 116/58 L 06/25/25 16:24 99 H 118/53 L 06/25/25 16:10 90 18 126/59 L 06/25/25 15:19 110 H 100 06/25/25 15:14 95 H 99 06/25/25 15:09 104 H 99 06/25/25 15:04 95 H 98 06/25/25 14:59 90 97 06/25/25 14:54 96 H 98 06/25/25 14:51 91 H 129/62 06/25/25 14:49 86 97 06/25/25 14:44 87 96 06/25/25 14:39 84 97 06/25/25 14:37 92 H 122/58 L 06/25/25 14:34 100 H 98 06/25/25 14:29 89 97 06/25/25 14:24 87 95 06/25/25 14:22 87 132/59 L 06/25/25 14:19 85 97 06/25/25 14:14 94 H 97 06/25/25 14:09 89 96 06/25/25 14:08 88 126/63 06/25/25 14:04 90 98 06/25/25 14:00 20 06/25/25 14:00 20 06/25/25 13:59 96 H 97 06/25/25 13:54 91 H 99 06/25/25 13:52 99 H 113/57 L 06/25/25 13:49 92 H 97 06/25/25 13:44 88 97 06/25/25 13:39 92 H 98 06/25/25 13:37 95 H 119/58 L 06/25/25 13:34 93 H 99 06/25/25 13:29 97 H 99 06/25/25 13:24 92 H 100 06/25/25 13:22 96 H 132/60 06/25/25 13:19 94 H 100 06/25/25 13:14 110 H 100 06/25/25 13:09 90 99 06/25/25 13:07 103 H 115/65 06/25/25 13:04 88 97 06/25/25 13:00 86 84 L 06/25/25 12:59 81 100 06/25/25 12:54 83 100 06/25/25 12:52 97 H 115/64 06/25/25 12:49 84 96 06/25/25 12:44 83 97 06/25/25 12:39 80 96 06/25/25 12:37 83 100/50 L 06/25/25 12:34 77 96 06/25/25 12:29 82 96 06/25/25 12:24 80 95 06/25/25 12:22 83 108/56 L 06/25/25 12:19 82 94 06/25/25 12:18 83 94 06/25/25 12:14 75 95 06/25/25 12:11 90 94 06/25/25 12:09 81 97 06/25/25 12:07 86 109/52 L 06/25/25 12:04 92 H 96 06/25/25 12:01 20 06/25/25 12:01 20 06/25/25 11:59 88 99 06/25/25 11:54 76 99 06/25/25 11:50 81 100/54 L 06/25/25 11:49 88 98 06/25/25 11:48 85 106/55 L 06/25/25 11:46 85 98/53 L 06/25/25 11:44 80 06/25/25 11:44 78 98/49 L 98 06/25/25 11:42 92 H 100/55 L 06/25/25 11:40 87 105/56 L 06/25/25 11:39 78 98 06/25/25 11:38 86 101/55 L 06/25/25 11:36 95 H 101/53 L 06/25/25 11:34 90 99/52 L 98 06/25/25 11:32 80 101/56 L 06/25/25 11:30 96 H 20 106/55 L 06/25/25 11:29 82 99 06/25/25 11:28 88 118/62 06/25/25 11:26 100 H 113/57 L 06/25/25 11:24 96 H 114/55 L 95 06/25/25 11:22 103 H 116/55 L 06/25/25 11:21 90 115/58 L 06/25/25 11:19 82 105/55 L 97 06/25/25 11:17 95 H 86/52 L 06/25/25 11:16 97 H 92 06/25/25 11:14 94 H 06/25/25 11:14 70 92/52 L 97 06/25/25 11:12 86 96/53 L 06/25/25 11:10 113 H 96/49 L 06/25/25 11:09 88 97 06/25/25 11:08 85 102/52 L 06/25/25 11:06 83 92/50 L 06/25/25 11:04 94 06/25/25 11:04 82 06/25/25 11:04 78 107/56 L 06/25/25 11:02 96 H 95/50 L 06/25/25 11:00 36.7 C 102 H 18 94/52 L 06/25/25 10:59 90 97 06/25/25 10:58 90 95/54 L 06/25/25 10:57 96 H 103/50 L 06/25/25 10:54 80 120/59 L 97 06/25/25 10:53 85 123/57 L 06/25/25 10:50 86 97/52 L 06/25/25 10:49 57 L 98 06/25/25 10:48 89 84/48 L 06/25/25 10:45 18 06/25/25 10:44 75 99 06/25/25 10:43 96 H 06/25/25 10:43 98 H 90/55 L 93 06/25/25 10:39 82 99 06/25/25 10:37 81 101/52 L 06/25/25 10:35 86 100/57 L 06/25/25 10:34 85 97 06/25/25 10:32 97 H 112/57 L 06/25/25 10:31 95 H 93 06/25/25 10:30 20 06/25/25 10:29 83 100 06/25/25 10:25 85 110/57 L 06/25/25 10:24 78 100 06/25/25 10:23 90 105/63 06/25/25 10:21 46 L 106/56 L 06/25/25 10:19 90 115/58 L 100 06/25/25 10:17 100 H 125/61 06/25/25 10:15 18 06/25/25 10:15 105 H 127/60 06/25/25 10:14 88 100 06/25/25 10:13 98 H 126/67 06/25/25 10:11 97 H 135/88 06/25/25 10:09 93 H 112/59 L 99 06/25/25 10:07 89 111/58 L 06/25/25 10:05 101 H 121/57 L 06/25/25 10:04 89 96 06/25/25 10:02 81 108/58 L 06/25/25 10:00 18 06/25/25 09:59 79 99 06/25/25 09:57 102 H 121/57 L 06/25/25 09:55 111 H 127/56 L 06/25/25 09:54 95 H 99 06/25/25 09:50 101 H 145/85 H 06/25/25 09:49 96 H 100 06/25/25 09:47 102 H 135/79 06/25/25 09:44 81 99 06/25/25 07:57 103 H 119/68 06/25/25 07:56 36.9 C 18 Resident Activity Tracking Resident Involvement: Resident Care Provided Care Provided: Adult [facility] Medicine
[2025-06-25] MEDS: ONDANSETRON INJ 2 MG/ML 2 ML VIAL IV STA (16:48)
[2025-06-25] MEDS: ONDANSETRON INJ 2 MG/ML 2 ML VIAL ONE (16:48)
--- NOTE | 2025-06-25 16:57 | Billing Data ---
Date of Service June 25, 2025 Coding Level of Care Code 05618 SUB INP/OBS CARE
[2025-06-25] MEDS: BENZOCAINE 20% SPRY 85 APPLN/85 GM CAN EXT PRN (17:15)
[2025-06-25] MEDS: OXYTOCIN 20 UNITS/LR 1,002 ML IV SCH (17:41)
[2025-06-25] MEDS: ACETAMINOPHEN 325 MG TAB PO PRN (19:27)
[2025-06-25] MEDS: IBUPROFEN 600 MG TAB PO PRN (19:27)
[2025-06-25] MEDS: DOCUSATE SODIUM 100 MG CAP PO SCH (21:03)
--- NOTE | 2025-06-26 06:00 | Obstetrical Progress Note ---
Date of Service June 26, 2025 Assessment & Plan (1) examination following vaginal delivery: (2) Dichorionic diamniotic twin : (3) Elderly multigravida: (4) Anemia affecting : (5) Obesity affecting , antepartum: (6) Group B streptococcal infection during : (7) PVC (premature ventricular contraction): Plan 34 y/o ppd 1 s/p . was complicated by obesity, GBS(+) and Rh(-). During delivery, patient incidentally found multiple PVCs on cardiac monitoring and has been admitted to PCU for continuous telemetry. Hospitalist team is following and appreciate their recommendations. Feels well today. Vital signs stable. Continue telemetry monitoring until cleared by medicine team. Continue post- care Encourage ambulation and Pain controlled with ibuprofen Hgb stable Anticipate home discharge tomorrow and follow up to Dr. Powers in 6 weeks. Admission and Anticipated Discharge Date Admission Date: June 25, 2025 Supervising Physician Co-Signing Physician Notes Resident Physician Supervision Note: I interviewed and examined the patient. Discussed with Dr. Alberts and agree with findings and plan as documented in the note. Any exceptions or clarifications are listed here: No acute events overnight. FF/nt appropriate for ppd#1. Nursing notes reveal minimal pvcs noted. Patient denies cp/sob. Patient anxious to come to pp floor. Discussed would see what medicine noted on rounds this am. Routine ob care. Documented By: Farzaneh Powers MD, FACOG Subjective 34 y/o ppd 1 s/p . was complicated by obesity, GBS(+) and Rh(-). During delivery, patient incidentally found multiple PVCs on cardiac monitoring and has been admitted to PCU for continuous telemetry. Hospitalist team is following and appreciate their recommendations. No acute cardiac events overnight. Feeling well this morning, denies chest pain, palpitations, SOB. Ambulation: ambulating normally Voiding: no voiding problems Passing Gas:: no Diet Tolerance:: regular diet Lochia:: Small Feeding Type:: bottle Current Pain Level: 2/10 Resting comfortably this AM in NAD. Denies REYNOSO, CP, SOB, N/V/D, LE pain/swelling. Physical Exam Physical Exam: General: patient resting comfortably, NAD, non-toxic in appearance, AA&O x 4, answers questions appropriately. Skin: warm, dry, intact HEENT: NC/AT, anicteric sclera, conjunctiva without injection, moist mucus membranes. Heart: +S1/S2, regular, no m/r/g Lungs: equal air entry bilaterally, no rales/rhonchi/wheezes Abd: +BS, soft, NT/ND, uterus is firm and appropriate size for day 1. Ext: warm, no clubbing/cyanosis or edema Neuro: nonfocal, patient AA&O x 4, speech intact, no facial droop, moving all extremities on command. Results & Data Vital Signs (Past 12 Hours) Vital Signs Temp Pulse Pulse Resp BP BP BP 06/26/25 03:20 37.6 C 74 18 117/74 06/25/25 23:18 37.2 C 84 18 122/67 06/25/25 22:02 83 06/25/25 19:18 36.8 C 77 18 122/66 06/25/25 18:10 37.2 C 83 18 135/71 Pulse Ox O2 Del Method 06/26/25 03:20 98 Room Air 06/25/25 23:18 97 Room Air 06/25/25 22:02 06/25/25 19:18 97 Room Air 06/25/25 18:10 96
[2025-06-26 06:01] LABS: Hematocrit (blood only) 32.1 % (37.0-47.0); Hemoglobin 10.6 g/dl (12.0-16.0)
[2025-06-26 06:16] LABS: Anion Gap 5.0 (3-11); Blood Urea Nitrogen 7.0 mg/dl (6-23); Calcium 8.6 mg/dl (8.6-10.3); Carbon Dioxide 23.0 mmol/L (21-32); Chloride 107.0 mmol/L (98-107); Creatinine Clr Calc Pharmacy 247.3 ml/min; Glucose 91.0 mg/dl (70-99(Fasting)); Potassium 3.9 mmol/L (3.5-5.1); Sodium 135.0 mmol/L (136-145)
--- NOTE | 2025-06-26 07:01 | Hospitalist Progress Note ---
Date of Service June 26, 2025 Assessment & Plan (1) PVC (premature ventricular contraction): Plan: 34 yo otherwise healthy female, incidentally found to have PVCs during delivery, admitted ON on Tele. Telemetry shows still frequent PVCs and PACs ongoing, mostly bigemini,On average around 30-40% of HR. Fortunately no other arrhythmia beside these. Patient remains HD stable and asymptomatic Recommend f.u outpatient with PCP. Cardiac monitoring would really be not indicated given she is asymptomatic. Can shift to OB floor for routine OB care. Hospitalist team will sign off for now. (2) Vaginal delivery: Admission and Anticipated Discharge Date Admission Date: June 25, 2025 Supervising Physician Co-Signing Physician Notes I personally examined the patient and verified all rubio points of history and exam, discussed case, and agree with decision making with Dr Hernández Feeling good overall. No new symptoms, no complaints. Vitals noted, in general she is awake and alert pleasant no distress. Breathing unlabored no accessory muscle use good effort. Occasional ectopy on monitor noted. Neuro without focal deficits. Labs and diagnostics noted. predominantly occasional PVCs, with occasional bigeminy on monitor. Frequent ectopyasymptomatic. No need for intervention. Safe/stable for discharge from our perspective. Suspect ectopy is largely stress-induced from late /labor and delivery. For completeness sake, would repeat an EKG at outpatient follow-up to rule out the extremely rare occurrence of persistent/constant bigeminy (that still may simply require occasional monitoring, but very rarely would actually require treatment) Nausea/vomitingas needed Zofran, but at this point appears to have resolved Otherwise as above. medically stable. Stable for discharge from our perspective. Hospitalist team will sign off. Do not hesitate to reach out, however, if we can be of further assistance. Subjective Remains asymptomatic overnight. No SOB, CP, palpitation, leg swelling. No excessive bleeding pp. Expresses this is by far the most smoothest delivery out of all for her in term of post symptoms. Review of Systems Review of Systems: Per HPI Physical Exam Physical Exam: Constitutional: Well appearing, No acute distress HEENT: Atraumatic, Normocephalic, No conjunctival injection CVS: S1 S2 no murmur, occasional extra heart beats noted on exam and monitor Respiratory: BL equal air entry with NVBS. No rhonchi, wheezes, or crackles. No increased work of breathing GI: Soft, Distended belly, uterus palpated between umbilicus and pubic bone, well contracted Nontender MSK: No gross deformities noted Skin: Warm, Dry, No rashes Neuro: Alert, Oriented to TPP, No Focal deficit Psych: Mood and Affect congruent, Cooperative on exam Results & Data Results & Data Vital Signs (Past 12 Hours) Vital Signs Temp Pulse Pulse Resp BP BP Pulse Ox 06/26/25 05:45 66 06/26/25 03:20 37.6 C 74 18 117/74 98 06/25/25 23:18 37.2 C 84 18 122/67 97 06/25/25 22:02 83 06/25/25 19:18 36.8 C 77 18 122/66 97 O2 Del Method 06/26/25 05:45 06/26/25 03:20 Room Air 06/25/25 23:18 Room Air 06/25/25 22:02 06/25/25 19:18 Room Air Resident Activity Tracking Resident Involvement: Resident Care Provided Care Provided: Adult Hospital Medicine
[2025-06-26] MEDS: PRENATAL VITAMIN 1 TAB PO SCH (08:24)
--- NOTE | 2025-06-26 09:09 | Billing Data ---
Date of Service June 26, 2025 Coding Level of Care Code 71760 SUB INP/OBS CARE
--- NOTE | 2025-06-27 06:20 | Obstetrical Progress Note ---
Date of Service June 27, 2025 Assessment & Plan (1) examination following vaginal delivery: (2) Dichorionic diamniotic twin : (3) Elderly multigravida: (4) Anemia affecting : (5) Obesity affecting , antepartum: (6) Group B streptococcal infection during : (7) PVC (premature ventricular contraction): Plan 34 y/o ppd 2 s/p . was complicated by obesity, GBS(+) and Rh(-). During delivery, patient incidentally found multiple PVCs on cardiac monitoring and was admitted to PCU for continuous telemetry. Patient now back on floor w/o need for telemetry monitoring. Medicine team still following and appreciate their recommendations. Feels well today. Vital signs stable. Rh(-), patient given Rhogam yesterday Continue post- care Encourage ambulation and Pain controlled with ibuprofen Hgb stable Anticipate home discharge today and follow up to Dr. Powers in 6 weeks. Admission and Anticipated Discharge Date Admission Date: June 25, 2025 Supervising Physician Co-Signing Physician Notes Resident Physician Supervision Note: I was present with Dr. Alberts during the history and exam. I discussed the case with the resident and agree with the findings and plan as documented in the note. Any exceptions or clarifications are listed here: doing well, babies are well and wants to go home. bottle feeding. eating, voiding, ambulating without prob. cor rrr, lungs ctab, abd soft obese ff 2 down nt, ext nt calves. ppd#2 s/p twin , ready to go home. instructions reviewed. f/u 6wks pp check. bottle feeding, rh neg, had rhogam, ri. Documented By: Ellyn Garcia MD, FACOG Subjective 34 y/o ppd 2 s/p . was complicated by obesity, GBS(+) and Rh(-). During delivery, patient incidentally found multiple PVCs on cardiac monitoring and has been admitted to PCU for continuous telemetry. Hospitalist team is following and appreciate their recommendations. No acute cardiac events overnight. Feeling well this morning, does state having a brief episode of nonradiating chest pain while in bed, which had resolved when OOB and in chair. Denies palpitations, SOB. Ambulation: ambulating normally Voiding: no voiding problems Passing Gas:: no Diet Tolerance:: regular diet Lochia:: Small Feeding Type:: bottle Current Pain Level: minimal Resting comfortably this AM in NAD. Denies REYNOSO, CP, SOB, N/V/D, LE pain/swelling. Physical Exam Physical Exam: General: patient resting comfortably, NAD, non-toxic in appearance, AA&O x 4, answers questions appropriately. Skin: warm, dry, intact HEENT: NC/AT, anicteric sclera, conjunctiva without injection, moist mucus membranes. Abd: soft, NT/ND, uterus is firm and appropriate size for day 2. Ext: warm, no clubbing/cyanosis or edema Neuro: nonfocal, patient AA&O x 4, speech intact, no facial droop, moving all extremities on command. Results & Data Vital Signs (Past 12 Hours) Vital Signs Temp Pulse Resp BP Pulse Ox O2 Del Method 06/26/25 23:00 36.7 C 78 18 122/81 96 Room Air 06/26/25 19:42 Room Air 06/26/25 19:42 36.7 C 70 18 127/72 99 Room Air
[2025-06-27 07:58] VITALS: PULSE 54; RESP 14; TEMP 98.2; O2SAT 99
[2025-06-27 12:02] VITALS: BP 122/67
== END 2025-06-27 11:50 | disposition home or self-care (01) | DRG 805 ==
LOC: 4S1 07:39 → EDSTATUS 09:00 → 2E 17:58 → 4E2 06-26 07:45